=== PATIENT | female | born 1950 | race Caucasian/White ===

== ENCOUNTER 2022-11-16 10:56 | Outpatient (AMB) | payer MEDICARE, SELFPAY ==
--- NOTE | 2022-11-16 10:59 | A.OFFVIS_ITS ---
Intake Vital Signs 11/16/22 11:01 Height 5 ft 5 in Weight 151 lb 0.266 oz BMI 25.1 BP 126/86 Blood Pressure Location Rt brachial Position Sitting Pulse 86 Pulse Source Pulse Oximeter Temp 97.3 F Temp Source Skin Pulse Oximetry (%) 96 Oxygen Delivery Method Room Air Intake Visit Reasons: Polymyalgia rheumatica Intake Note: New patient here for PMR. Former patient of Dr. Ann at [facility] [place]. 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 Accompanied by: Self / Same As Patient Allergies acetaminophen [From Percocet] Allergy (Verified 11/16/22 10:59) Nausea and Vomiting bupropion [From Wellbutrin] Allergy (Verified 11/16/22 10:59) Abdominal Pain oxycodone [From Percocet] Allergy (Verified 11/16/22 10:59) Nausea and Vomiting Medication List - Last Reconciled 11/16/22 by Maycol Chavez MD alendronate 70 mg PO QWEEK aripiprazole 5 mg PO DAILY atorvastatin 10 mg PO DAILY clonidine HCl 0.1 mg PO BEDTIME gabapentin 300 mg PO TID glycopyrrolate 0 mg PO hydroxyzine HCl 25 mg PO TID latanoprost 0.005% 0 drps ophthalmic (eye) lisinopril 10 mg PO DAILY lorazepam 0.5 mg PO BID PRN prednisone 2.5 mg PO DAILY trazodone mg PO HPI HPI Comments History of Present Illness Details The patient presents for evaluation of PMR. She is a former patient of Dr. Glaser at [facility]. She thinks her symptoms of PMR began in 2019. She was having trouble with back and hip pains. She had trouble getting up out of bed cell and actually elevated her bed so as not to have to stand up is much. Eventually she did get seen by someone who made the diagnosis of PMR. She recalls being started on 15 mg daily prednisone and felt back to normal within about 5 days. There has never been any headache, jaw claudication or visual disturbance. She recalls tapering the prednisone down to as low as she could stand. There was a time when she had a flare-up a few years ago and required 12.5 mg daily prednisone. She does have the 2.5 mg and 1 mg tablets and has been at 2.5 mg for the last few weeks, having tapered from 3.5 mg daily. [facility] Medical History History of sleep disorder Hx of attention deficit disorder Hx of low back pain Hx of bipolar disorder History of anxiety Hx of essential hypertension Hx of hyperlipidemia Hx of idiopathic urticaria History of hyperthyroidism Hx of osteopenia Overweight with body mass index (BMI) of 29 to 29.9 in adult Hx of hyperkalemia History of macrocytosis detention (current) use of systemic steroids History of polymyalgia rheumatica Surgical History History of open reduction and internal fixation (ORIF) procedure Hx of cervical spine surgery Social History (Updated 11/16/22 @ 11:09 by ISABELLE Simms) Household Members: None Alcohol intake: current Alcohol intake frequency: holidays/special occasions only Patient Tobacco Use Status: Former Tobacco user Current occupational status: employed 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 Negative for appetite change, fever, chills, malaise and fatigue Eyes Details: Some itchiness in the eyes. Negative for vision change, dry eyes,headaches and dizziness ENT Details: Occasional hoarseness. Negative for hearing change, tinnitus, oral ulcer, nose bleeds and oral dryness. Card Details: Negative chest pain, edema and syncope Resp Details: History of asthma with occasional shortness of breath and cough but recently negative for SOB, cough and wheezing GI Details: Negative indigestion/heartburn, nausea, abdominal pain, bowel changes, diarrhea, constipation and bloody stool. Details: Negative for dysuria, hematuria, nocturia, decreased force/flow and genital discharge Skin/Breast Details: Occasional hives of unclear etiology. She has hyperhidrosis and is on some medicine for that. She has upcoming Dermatology appointment. Negative for itching, rash, Raynaud's symptoms, sun sensitivity, and skin cancer Neuro Details: Negative for epilepsy, palsy, stroke, changes in speech, tingling and weakness Psych Details: Negative for anxiety, depression and stress Endo Details: Negative for polyuria and polydypsia Jeb/Lymph Details: Negative for excessive bruising or bleeding. Physical Exam Vital Signs: Last Vital Signs Temp 97.3 F 11/16/22 11:01 Pulse 86 11/16/22 11:01 BP 126/86 11/16/22 11:01 Pulse Ox 96 11/16/22 11:01 Oxygen Delivery Method Room Air 11/16/22 11:01 BMI result Body Mass Index 25.1 APPEARANCE: Patient in no acute distress EYES no redness, pupils equal and reactive to light, eyelids normal. No temporal artery tenderness, redness or swelling. EARS: External ear normal, canal clear and tympanic membrane normal. NOSE/SINUS: Airflow through both nares, no nasal discharge, no bleeding THROAT: Oral mucosa moist, no ulcerations NECK: No thyromegaly or masses, no adenopathy, trachea midline. HEART: Regulrar rhythm, S1-S2 heard, no murmurs, rubs or gallops. LUNG: Clear to percussion and auscultation ABD: Normal bowel sounds, no organomegaly, masses or tenderness. EXTREMITIES: No edema, no calf tenderness, normal peripheral pulses. NEURO: Oriented and alert x3. No focal weakness. Reflexes symmetric. Gait normal. SKIN: No inflammatory or neoplastic lesions. Normal color and turgor JOINT EXAM:.?? Cervical Spine:.? Decrease in lateral flexion to 10 degrees and rotation at 45 degrees with slight discomfort at those extremes. No tenderness. Thoracic Spine:.? No scoliosis.? No tenderness on palpation. Lumbar Spine:.? Alignment normal.? Full range of motion without pain, no tenderness. Chest Wall:.? No tenderness, swelling, increased warmth or erythema. Hands:.? Right: Nontender bony enlargement at the base of the thumb. There is some nontender bony enlargement at the 2nd 3rd distal IP joints. Elsewhere in the hand there is no swelling or tenderness. No thenar atrophy or sensory loss. Left: Mild swelling and tenderness at the base of the thumb. There is some minimal nontender bony enlargement at the 2nd and 3rd distal IP joints. No other areas of swelling or tenderness. No thenar atrophy or sensory loss. Wrists: Right: Slight ulnar deviation. No tenderness, motion intact to 75 degrees without pain. No swelling, redness or warmth. Left: Appears to be some ulnar deviation at the wrist. The wrist is slightly tender with slight pain at 75 degrees flexion or extension.? There is no tenderness, redness or swelling . Elbows:. Normal pain-free range of motion without tenderness, swelling, increased warmth or erythema. Shoulders:.?? Full range of motion without pain. No tenderness, weakness, swelling, increased warmth or erythema. Hips:.? Full range of motion without pain. Hip bursa:.? No tenderness. Knees:.?? Normal pain-free range of motion with mild patellofemoral crepitus. No effusion, tenderness, swelling, increased warmth or erythema.? Ankles:. Left: There is evidence of surgery about the ankle but range of motion seems to be intact without pain. No areas of tenderness or swelling. Right:? Normal pain-free range of motion without tenderness, swelling, increased warmth or erythema. Feet: Right: Slight 1st MTP bony enlargement. There is at dorsal firm lump on the instep. This is not tender. There is no area of tenderness or swelling. Left: Mild 1st MTP bony enlargement without tenderness. There is also some slight bony enlargement at the 1st and 2nd interphalangeal joints without tenderness. No other areas of tenderness or swelling. Tender points:.? No tenderness to digital palpation at the occiput, trapezius, second rib, lateral epicondyle, knees, greater trochanter and gluteal area bilaterally. ? Assessment & Plan Assessment & Plan (1) Hx of osteopenia: Code(s): Z87.39 - Personal history of other diseases of the musculoskeletal system and connective tissue (2) Polymyalgia rheumatica: Code(s): M35.3 - Polymyalgia rheumatica Plan The patient has a good history that is consistent with PMR. She has been tapering on the prednisone over the last few years. We will check the acute phase reactants today if they look normal we will advise on further tapering. We will try to get the prednisone dose as low as possible and eventually get her off it although we cannot make any guarantees in that regard. She does have some underlying osteoarthritis in the hands and in the feet but they are minimally symptomatic presently. She likely has some OA elsewhere, again without much in the way of symptomatology currently. I do not seem to be able to find her bone density test but with the chronic prednisone use I would concur with continuing the alendronate at least until we get her off the prednisone. We will have her come back in 3 months but will advis her on further reductions in the prednisone after the labs come back. Addendum: CRP .24, ESR 9. We will call and tell her to reduce prednisone to 2 mg daily for a month then 1mg daily. Orders: Orders C Reactive Protein Today M35.3 - Polymyalgia rheumatica Erythrocyte Sedimentation Rate Today M35.3 - Polymyalgia rheumatica Coding Level of Care Code New Pt Level 3 (74188) Diagnoses Hx of osteopenia Z87.39 Polymyalgia rheumatica M35.3
[2022-11-16 11:01] VITALS: BP 126/86; PULSE 86; TEMP 36.3; O2SAT 96; BMI 25.1
== END 2022-11-16 11:49 | disposition home or self-care (01) ==
PROVIDERS: PCP Nurse Practitioner Family; Visit Provider Internal Medicine Rheumatology
DX: Z87.39 Personal history of other diseases of the musculoskeletal system and connective tissue (principal); M35.3 Polymyalgia rheumatica
CPT/HCPCS: 99203

== ENCOUNTER → 2022-11-16 10:56 | Outpatient (BNVA) | payer MEDICARE, SELFPAY | PROVIDERS: PCP Nurse Practitioner Family; Visit Provider Internal Medicine Rheumatology ==

== ENCOUNTER 2022-11-16 11:56 | Outpatient (REF) | payer MEDICARE, SELFPAY ==
[2022-11-16 13:56] LABS: C Reactive Protein 0.24 mg/dL (< or = 0.50)
[2022-11-16 14:21] LABS: Erythrocyte Sedimentation Rate 9 MM/HR (0-20)
== END 2022-11-16 11:57 | disposition home or self-care (01) ==
LOC: HO.10HDL 11:56
PROVIDERS: Visit Provider Internal Medicine Rheumatology
DX: M35.3 Polymyalgia rheumatica (principal)
CPT/HCPCS: 36415; 85652; 86140

== ENCOUNTER 2023-02-22 09:47 | Outpatient (REF) | payer MEDICARE, SELFPAY | END 2023-02-22 09:48 | disposition home or self-care (01) | LOC: HO.XRAY 09:47 | PROVIDERS: PCP Nurse Practitioner Family; Visit Provider Nurse Practitioner Family | DX: M35.3 Polymyalgia rheumatica (principal); M79.641 Pain in right hand; M79.642 Pain in left hand; M79.671 Pain in right foot; M79.672 Pain in left foot | CPT/HCPCS: 73130; 73630; 99212 ==

== ENCOUNTER 2023-02-22 09:47 | Outpatient (AMB) | payer MEDICARE, SELFPAY ==
[2023-02-22 09:56] VITALS: BP 130/78; PULSE 94; RESP 17; TEMP 36.5; O2SAT 98
--- NOTE | 2023-02-22 09:56 | MHC.OFFVIS ---
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 Accompanied by: Self / Same As Patient Allergies acetaminophen [From Percocet] Allergy (Verified 02/22/23 10:01) Nausea and Vomiting bupropion [From Wellbutrin] Allergy (Verified 02/22/23 10:01) Abdominal Pain oxycodone [From Percocet] Allergy (Verified 02/22/23 10:01) Nausea and Vomiting Medication List - Last Reconciled 02/22/23 by Jackelyn Little RN alendronate 70 mg PO QWEEK aripiprazole 5 mg PO DAILY atorvastatin 10 mg PO DAILY clonidine HCl 0.1 mg PO BEDTIME gabapentin 300 mg PO TID glycopyrrolate 0 mg PO hydroxyzine HCl 25 mg PO TID latanoprost 0.005% 0 drps ophthalmic (eye) lisinopril 10 mg PO DAILY lorazepam 0.5 mg PO BID PRN prednisone 1 mg PO DAILY trazodone mg PO HPI HPI Comments History of Present Illness Details Mrs. Mcdaniels is 72-year-old female presents for follow-up evaluation of PMR, last seen in the office 11/2022. Since last visit in she has tapered down to 1 mg QD and has been at 1 mg for 3 weeks. She reports she is doing well but she feels the most stiffness when she first wakes up in the morning to get out of bed, but it does not last for more than 30 minutes. She reports that the morning stiffness improves as she gets moving to make coffee. She feels fairly well throughout the day but if she sits down again she feels stiffness to get moving again. She is scheduled for Bone Density update in July 2023 Prior Visit The patient presents for evaluation of PMR. She is a former patient of Dr. Glaser at [facility]. She thinks her symptoms of PMR began in 2019. She was having trouble with back and hip pains. She had trouble getting up out of bed cell and actually elevated her bed so as not to have to stand up is much. Eventually she did get seen by someone who made the diagnosis of PMR. She recalls being started on 15 mg daily prednisone and felt back to normal within about 5 days. There has never been any headache, jaw claudication or visual disturbance. She recalls tapering the prednisone down to as low as she could stand. There was a time when she had a flare-up a few years ago and required 12.5 mg daily prednisone. She does have the 2.5 mg and 1 mg tablets and has been at 2.5 mg for the last few weeks, having tapered from 3.5 mg daily. 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 History of polymyalgia rheumatica Surgical History History of open reduction and internal fixation (ORIF) procedure Hx of cervical spine surgery Social History Household Members: None Alcohol intake: current Alcohol intake frequency: holidays/special occasions only Patient Tobacco Use Status: Former Tobacco user Current occupational status: employed 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 NOSE/SINUS: Airflow through both nares, no nasal discharge, no bleeding THROAT: Oral mucosa moist, no ulcerations HEART: Regulrar rhythm, S1-S2 heard, no murmurs, rubs or gallops. LUNG: Clear to percussion and auscultation ABD: Normal bowel sounds, no organomegaly, masses or tenderness. EXTREMITIES: No edema, no calf tenderness, normal peripheral pulses. NEURO: Oriented and alert x3. No focal weakness. Reflexes symmetric. Gait normal. SKIN: No inflammatory or neoplastic lesions. Normal color and turgor JOINT EXAM:.?? Cervical Spine:.? Decrease in lateral flexion to 10 degrees and rotation at 45 degrees with slight discomfort at those extremes. No tenderness. Thoracic Spine:.? No scoliosis.? No tenderness on palpation. Lumbar Spine:.? Alignment normal.? Full range of motion without pain, no tenderness. Chest Wall:.? No tenderness, swelling, increased warmth or erythema. Hands:.? There moderate tenderness with palpation and ROM of bilateral CMC joints Right: Nontender bony enlargement at the base of the thumb. There is some non tender bony enlargement at the 2nd 3rd distal IP joints but the patient says they can be tender at times. Elsewhere in the hand there is no swelling or tenderness. No thenar atrophy or sensory loss. Left: No swelling and tenderness at the base of the thumb. There is some minimal non tender bony enlargement at the 2nd and 3rd distal IP joints but they can get tender. No other areas of swelling or tenderness. No thenar atrophy or sensory loss. She does have some ulnar deviations of the right 3rd DIP joint Wrists: Right: Slight ulnar deviation. No tenderness, motion intact to 75 degrees without pain. No swelling, redness or warmth. Left: Appears to be some ulnar deviation at the wrist. The wrist is slightly tender with slight pain at 75 degrees flexion or extension.? There is no tenderness, redness or swelling. Bilateral wrists have history of fracture/breaks: Left x 2, right x1: Patient reports not seeking medical help when this happened. . Elbows:. Normal pain-free range of motion without tenderness, swelling, increased warmth or erythema. Shoulders:.?? Full range of motion without pain. No tenderness, weakness, swelling, increased warmth or erythema. Hips:.? Full range of motion without pain. Hip bursa:.? No tenderness. Knees:.?? Normal pain-free range of motion with mild patellofemoral crepitus. No effusion, tenderness, swelling, increased warmth or erythema.? Ankles:. Left: There is evidence of surgery about the ankle but range of motion seems to be intact without pain. No areas of tenderness or swelling. Right:? Normal pain-free range of motion without tenderness, swelling, increased warmth or erythema. Feet: Right: Slight 1st MTP bony enlargement. There is at dorsal firm lump on the instep. This is not tender. There is no area of tenderness or swelling. Left: Mild 1st MTP bony enlargement without tenderness. There is also some slight bony enlargement at the 1st and 2nd interphalangeal joints without tenderness. No other areas of tenderness or swelling. mild deformity to left 2nd digit Tender points:.? No tenderness to digital palpation at the occiput, trapezius, second rib, lateral epicondyle, knees, greater trochanter and gluteal area bilaterally. ? Assessment & Plan Assessment & Plan (1) Hx of osteopenia: Code(s): Z87.39 - Personal history of other diseases of the musculoskeletal system and connective tissue (2) Polymyalgia rheumatica: Code(s): M35.3 - Polymyalgia rheumatica (3) Bilateral hand pain: Code(s): M79.641 - Pain in right hand; M79.642 - Pain in left hand (4) Bilateral foot pain: Code(s): M79.671 - Pain in right foot; M79.672 - Pain in left foot Plan #PMR:Miss Mcdaniels, 72 yoF is being treated for PMR since 2019. 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 She enjoys staying active because she feels better when she does. The patient has a good history that is consistent with PMR. She is familiar with the symptoms of PMR and denies large muscle fatigue, tenderness or pain. At this point I think the PMR is resolved and what the patient is experiencing is osteoarthritis in her joint. She describes stiffness, especially in the morning, as her main concern. I explained to her the gelling phenomenon. Though gelling is more significant in the setting of an inflammatory arthritis, it helps us to understand what happens when our joints are inactive for a period of time. The difference is that in OA the duration of stiffness is shorter and recovery is usually faster(within minutes) once we get moving. She is current on 1 mg prednisone q.d. having tapered from 3 mg since last visit. I recommend that she continue the 1 mg for 1 more week and then stop. Given that she has been on Prednisone for so long, if it helps, she has the option to take 1 to 2 mg on days that she feels more joint pains after a hard work day. She should continue to take the Tylenol which she also finds beneficial. I will also obtain updated CRP/ESR. #Hand and Foot Pain: I will obtain imaging to assess the extent of OA also to investigate for features of an inflammatory arthritis to further evaluate the occasional tenderness to hand DIPs and Toe IPs. It maybe there is erosive OA underlying. #Hx of Osteopenia: With the chronic prednisone use I would concur with continuing the alendronate at least until we get her off the prednisone and for some months after. We will have her come back in 6 months but she is advise to call the office for earlier appointment if she experiences recurring symptoms of PMR. Orders: Orders XR hand LT min 3V Today M35.3 - Polymyalgia rheumatica, M79.641 - Pain in right hand, M79.642 - Pain in left hand, M79.671 - Pain in right foot, M79.672 - Pain in left foot Rheumatoid Factor Today M35.3 - Polymyalgia rheumatica, M79.641 - Pain in right hand, M79.642 - Pain in left hand, M79.671 - Pain in right foot, M79.672 - Pain in left foot XR hand RT min 3V Today M35.3 - Polymyalgia rheumatica, M79.641 - Pain in right hand, M79.642 - Pain in left hand, M79.671 - Pain in right foot, M79.672 - Pain in left foot XR foot LT min 3V Today M35.3 - Polymyalgia rheumatica, M79.641 - Pain in right hand, M79.642 - Pain in left hand, M79.671 - Pain in right foot, M79.672 - Pain in left foot XR foot RT min 3V Today M35.3 - Polymyalgia rheumatica, M79.641 - Pain in right hand, M79.642 - Pain in left hand, M79.671 - Pain in right foot, M79.672 - Pain in left foot Cyclic Citrullinated Peptide Today M35.3 - Polymyalgia rheumatica, M79.641 - Pain in right hand, M79.642 - Pain in left hand, M79.671 - Pain in right foot, M79.672 - Pain in left foot Complete Blood Count Auto Diff Today M35.3 - Polymyalgia rheumatica, M79.641 - Pain in right hand, M79.642 - Pain in left hand, M79.671 - Pain in right foot, M79.672 - Pain in left foot Comprehensive Met. Panel Today M35.3 - Polymyalgia rheumatica, M79.641 - Pain in right hand, M79.642 - Pain in left hand, M79.671 - Pain in right foot, M79.672 - Pain in left foot Coding Level of Care Code Est Pt Level 4 (93265) Diagnoses Hx of osteopenia Z87.39 Polymyalgia rheumatica M35.3 Bilateral hand pain M79.641; M79.642 Bilateral foot pain M79.671; M79.672
== END 2023-02-22 10:30 | disposition home or self-care (01) ==
PROVIDERS: PCP Nurse Practitioner Family; Visit Provider Nurse Practitioner Family
DX: Z87.39 Personal history of other diseases of the musculoskeletal system and connective tissue (principal); M35.3 Polymyalgia rheumatica; M79.641 Pain in right hand; M79.642 Pain in left hand; M79.671 Pain in right foot; M79.672 Pain in left foot
CPT/HCPCS: 99214

== ENCOUNTER 2023-02-22 10:39 | Outpatient (REF) | payer MEDICARE, SELFPAY ==
[2023-02-22 13:29] LABS: MANUAL DIFF FLAG NO
[2023-02-22 13:36] LABS: Basophils Absolute Auto 0.1 X10*3/uL (0.0-0.2); Basophils Percent Auto 0.7 % (0-2); Eosinophils Absolute Auto 0.2 X10*3/uL (0.0-0.4); Eosinophils Percent Auto 1.6 % (0-4); Hemoglobin 13.5 g/dl (12.0-16.0); Imm Gran Abs Auto 0.05 X10*3/uL (0.00-0.03); Imm Gran Pct Auto 0.5 % (0.0-0.4); Lymphocytes Absolute Auto 2.1 X10*3/uL (1.2-4.9); Lymphocytes Percent Auto 21.2 % (20-40); Mean Corpuscular HGB Conc 32.1 g/dl (31.0-35.0); Mean Corpuscular Hemoglobin 32.9 pg (27.0-33.0); Mean Corpuscular Volume 102.4 fL (80.0-98.0); Monocytes Absolute Auto 0.6 X10*3/uL (0.1-1.2); Monocytes Percent Auto 5.5 % (2-11); Neutrophils Absolute Auto 7.1 x10*3/uL (2.0-8.3); Neutrophils Percent Auto 70.5 % (45-73); Platelet Count 322 X10*3/uL (160-400); Red Cell Distribution Width 11.9 % (11.0-16.0); White Blood Count 10.1 X10*3/uL (4.8-10.8)
[2023-02-22 14:03] LABS: Alanine Aminotransferase 25 U/L (0-31); Albumin Level 4.6 g/dL (3.5-5.0); Alkaline Phosphatase 54 U/L (39-117); Anion Gap 14 (12-20); Aspartate Amino Transferase 26 U/L (5-31); Bilirubin Total 0.3 mg/dL (0.0-1.0); Blood Urea Nitrogen 12 mg/dL (9-16); Calcium 10.3 mg/dL (8.4-10.2); Carbon Dioxide 27 mmol/L (22-29); Chloride 102 mmol/L (96-108); Estimated Glomerular Filt Rate > 60; Glucose Random 103 mg/dL (60-115); Potassium 5.3 mmol/L (3.3-5.1); Sodium 138 mmol/L (135-145); Total Protein 7.9 g/dL (6.5-8.0)
[2023-02-22 14:04] LABS: Rheumatoid Factor < 13.0 IU/mL (<15.0)
[2023-02-23 12:23] LABS: Cyclic Citrullinated Peptide <16 UNITS
== END 2023-02-22 10:40 | disposition home or self-care (01) ==
LOC: HO.10HDL 10:39
PROVIDERS: Visit Provider Nurse Practitioner Family
DX: M35.3 Polymyalgia rheumatica (principal); M79.641 Pain in right hand; M79.642 Pain in left hand; M79.671 Pain in right foot; M79.672 Pain in left foot
CPT/HCPCS: 36415; 80053; 85025; 86200; 86431

== ENCOUNTER 2023-08-23 08:35 | Outpatient (REF) | payer MEDICARE, SELFPAY ==
[2023-08-23 08:47] LABS: MANUAL DIFF FLAG NO
[2023-08-23 09:15] LABS: Basophils Absolute Auto 0.1 X10*3/uL (0.0-0.2); Basophils Percent Auto 0.6 % (0-2); Eosinophils Absolute Auto 0.1 X10*3/uL (0.0-0.4); Eosinophils Percent Auto 0.7 % (0-4); Hematocrit 39.3 % (37.0-47.0); Hemoglobin 12.8 g/dl (12.0-16.0); Imm Gran Abs Auto 0.05 X10*3/uL (0.00-0.03); Imm Gran Pct Auto 0.4 % (0.0-0.4); Lymphocytes Absolute Auto 1.9 X10*3/uL (1.2-4.9); Lymphocytes Percent Auto 15.2 % (20-40); Mean Corpuscular HGB Conc 32.6 g/dl (31.0-35.0); Mean Corpuscular Hemoglobin 33.2 pg (27.0-33.0); Mean Corpuscular Volume 101.8 fL (80.0-98.0); Mean Platelet Volume 8.6 fL (9.4-12.3); Monocytes Absolute Auto 0.7 X10*3/uL (0.1-1.2); Monocytes Percent Auto 5.7 % (2-11); Neutrophils Absolute Auto 9.4 x10*3/uL (2.0-8.3); Neutrophils Percent Auto 77.4 % (45-73); Platelet Count 262 X10*3/uL (160-400); Red Blood Count 3.86 X10*6/uL (4.20-5.50); Red Cell Distribution Width 13.5 % (11.0-16.0); White Blood Count 12.2 X10*3/uL (4.8-10.8)
[2023-08-23 09:44] LABS: Alanine Aminotransferase 20 U/L (0-31); Albumin Level 4.3 g/dL (3.5-5.0); Alkaline Phosphatase 41 U/L (39-117); Anion Gap 13 (12-20); Aspartate Amino Transferase 23 U/L (5-31); Bilirubin Total 0.3 mg/dL (0.0-1.0); Blood Urea Nitrogen 21 mg/dL (9-16); C Reactive Protein 0.17 mg/dL (< or = 0.50); Calcium 9.3 mg/dL (8.4-10.2); Carbon Dioxide 26 mmol/L (22-29); Chloride 105 mmol/L (96-108); Estimated Glomerular Filt Rate > 60; Glucose Random 85 mg/dL (60-115); Sodium 139 mmol/L (135-145); Total Protein 7.1 g/dL (6.5-8.0)
[2023-08-23 10:01] LABS: Erythrocyte Sedimentation Rate 7 MM/HR (0-20)
[2023-08-24 21:19] LABS: Prot Elec - Albumin 4.2 g/dL (3.8-4.8); Prot Elec - Alpha1 0.3 g/dL (0.2-0.3); Prot Elec - Alpha2 0.7 g/dL (0.5-0.9); Prot Elec - Beta 1 0.5 g/dL (0.4-0.6); Prot Elec - Beta 2 0.4 g/dL (0.2-0.5); Prot Elec - Gamma 0.6 g/dL (0.8-1.7); Prot Elec - Total Protein 6.7 g/dL (6.1-8.1)
[2023-08-29 19:08] LABS: IgA 298 mg/dL (70-320); IgG 769 mg/dL (600-1540); IgM 49 mg/dL (50-300)
== END 2023-08-23 08:36 | disposition home or self-care (01) ==
LOC: HO.LAB 08:35
PROVIDERS: PCP Nurse Practitioner Family; Visit Provider Nurse Practitioner Family
DX: M35.3 Polymyalgia rheumatica (principal); M79.671 Pain in right foot; M79.672 Pain in left foot; M79.641 Pain in right hand; M79.642 Pain in left hand
CPT/HCPCS: 36415; 80053; 82784; 84165; 85025; 85652; 86140; 86334

== ENCOUNTER 2023-10-02 12:51 | Outpatient (AMB) | payer MEDICARE, SELFPAY ==
--- NOTE | 2023-10-02 13:06 | A.OFFVIS_ITS ---
Vital Signs 10/02/23 13:09 Height 5 ft 5 in Weight 157 lb 6.561 oz BMI 26.2 BP 124/78 Blood Pressure Location Rt brachial Position Sitting Respiration 16 Pulse 83 Pulse Source Pulse Oximeter Pulse Oximetry (%) 97 Oxygen Delivery Method Room Air Intake Visit Reasons: PMR/CM Intake Note: Patient presents for PMR. Allergies acetaminophen [From Percocet] Allergy (Verified 10/02/23 13:08) Nausea and Vomiting bupropion [From Wellbutrin] Allergy (Verified 10/02/23 13:08) Abdominal Pain oxycodone [From Percocet] Allergy (Verified 10/02/23 13:08) Nausea and Vomiting Medication List - Last Reconciled 10/02/23 by Eunice Best MD alendronate 70 mg PO QWEEK aripiprazole 5 mg PO DAILY atorvastatin 10 mg PO DAILY clonidine HCl 0.1 mg PO BEDTIME glycopyrrolate 0 mg PO hydroxyzine HCl 25 mg PO TID latanoprost 0.005% 0 drps ophthalmic (eye) lisinopril 10 mg PO DAILY lorazepam 0.5 mg PO BID PRN prednisone 2 mg (2 x 1 mg) PO DAILY trazodone mg PO HPI Comments Details: This is a 72-year-old female with PMR who presents for follow-up. After last visit patient was down to 1 mg of prednisone daily until she called with a flar e-up of multiple joint pain and stiffness this was in early July of 2023. She was prescribed prednisone 5 mg a day which did help of her pains now she lowered her prednisone down to 3 mg a day. She continues to have generalized achy joints but no significant stiffness. She denies any joint swelling FORMERLY [facility], [facility]1983 Medical History Bilateral foot pain Bilateral hand pain History of sleep disorder Hx of attention deficit disorder Hx of low back pain Hx of bipolar disorder History of anxiety Hx of essential hypertension Hx of hyperlipidemia Hx of idiopathic urticaria History of hyperthyroidism Hx of osteopenia Overweight with body mass index (BMI) of 29 to 29.9 in adult Hx of hyperkalemia History of macrocytosis halfway (current) use of systemic steroids History of polymyalgia rheumatica Surgical History History of open reduction and internal fixation (ORIF) procedure Hx of cervical spine surgery Social History Household Members: None Alcohol intake: current Alcohol intake frequency: holidays/special occasions only Patient Tobacco Use Status: Former Tobacco user Current occupational status: employed 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 Gender identity: Female Review of Systems [facility] [place] arthralgias and Reports stiffness Physical Exam Vital Signs: Last Vital Signs Pulse 83 10/02/23 13:09 Resp 16 10/02/23 13:09 BP 124/78 10/02/23 13:09 Pulse Ox 97 10/02/23 13:09 Oxygen Delivery Method Room Air 10/02/23 13:09 BMI result Body Mass Index 26.2 Const General: cooperative, healthy appearing and comfortable Nutritional Appearance: overweight Orientation/consciousness: patient oriented x3 Limitations: no limitations HEENT Head: Yes normocephalic and Yes atraumatic Mouth: moist mucous membranes Resp Effort & Inspection: normal respiratory effort and able to speak in complete sentences Skin General skin exam: no rashes or lesions noted Neuro General: patient oriented x3 Extrem Other: Significant osteoarthritic changes of both hands with no active synovitis Normal range of motion of hands, wrists, elbows and shoulders without pain Negative straight leg raise test bilaterally Bilateral trochanteric bursa area tenderness with negative Wilberto's test Negative straight leg raise test bilaterally No knee pain with flexion-extension bilaterally No Ankle swelling or tenderness bilaterally Assessment & Plan Assessment & Plan (1) Polymyalgia rheumatica: Comment: dx around [address] Ann Code(s): M35.3 - Polymyalgia rheumatica Category: Medical Plan: This is a 72-year-old female with PMR who presents for follow-up. This is her 1st visit with me. In early July patient called complaining of a flare-up of multiple joint pain. At that time she was taking prednisone 1 mg daily, prednisone was increased to 5 mg daily by Sultana Maguire with improvement of her symptoms. Patient self lowered her prednisone down to 3 mg a day. On exam today I believe the majority of patient's symptoms are mechanical and degenerative in nature. Reduce prednisone to 2 mg daily for 1 month, 1 mg daily for 1 month then 1 mg every other day for 1 month Labs before next visit in 3 months (2) Greater trochanteric bursitis of both hips: Code(s): M70.61 - Trochanteric bursitis, right hip; M70.62 - Trochanteric bursitis, left hip Category: Medical Plan: Not interested/unable to go to PT. I provided patient with a printout of home exercise Plan I spent 46 minutes reviewing patient's chart, reviewing old records from [facility], evaluating patient, ordering diagnostic workup, counseling patient and documenting in the chart Orders: Orders Complete Blood Count Auto Diff 3 Months M35.3 - Polymyalgia rheumatica C Reactive Protein 3 Months M35.3 - Polymyalgia rheumatica C Reactive Protein Today M35.3 - Polymyalgia rheumatica Erythrocyte Sedimentation Rate Today M35.3 - Polymyalgia rheumatica Hepatitis A,B,C Profile Today Z11.59 - Encounter for screening for other viral diseases Comprehensive Met. Panel 3 Months M35.3 - Polymyalgia rheumatica Erythrocyte Sedimentation Rate 3 Months M35.3 - Polymyalgia rheumatica Complete Blood Count Auto Diff Today M35.3 - Polymyalgia rheumatica Comprehensive Met. Panel Today M35.3 - Polymyalgia rheumatica T Spot TB Today Z11.7 - Encounter for testing for latent tuberculosis infection RACHAEL Reflex Titer and Pattern 3 Months M25.50 - Pain in unspecified joint Medications: Changed From prednisone 2 mg (2 x 1 mg) PO DAILY 56 tabs 0RF M35.3 - Polymyalgia rheumatica To prednisone Take 2 tabs daily for 1 month, 1 tab daily for 1 month then 1 tab every other day for 1 month 105 tabs 0RF M35.3 - Polymyalgia rheumatica Coding Level of Care Code Est Pt Level 5 (90925) Diagnoses Polymyalgia rheumatica M35.3 Greater trochanteric bursitis of both hips M70.61; M70.62
[2023-10-02 13:09] VITALS: BP 124/78; PULSE 83; RESP 16; O2SAT 97; BMI 26.2
== END 2023-10-02 13:45 | disposition home or self-care (01) ==
PROVIDERS: PCP Nurse Practitioner Family; Visit Provider Student in an Organized Health Care Education/Training Program
DX: M35.3 Polymyalgia rheumatica (principal); M70.61 Trochanteric bursitis, right hip; M70.62 Trochanteric bursitis, left hip
CPT/HCPCS: 99215

== ENCOUNTER → 2023-10-02 12:51 | Outpatient (BNVA) | payer MEDICARE, SELFPAY | PROVIDERS: PCP Nurse Practitioner Family; Visit Provider Student in an Organized Health Care Education/Training Program | DX: M35.3 Polymyalgia rheumatica (principal); M70.61 Trochanteric bursitis, right hip; M70.62 Trochanteric bursitis, left hip | CPT/HCPCS: 99212 ==

== ENCOUNTER 2023-10-31 09:15 | Outpatient (AMB) | payer MEDICARE, SELFPAY ==
--- NOTE | 2023-10-31 09:18 | MHC.OFFVIS ---
Vital Signs 10/31/23 09:19 Height 5 ft 5 in Weight 174 lb 9.698 oz BMI 29.1 BP 150/80 H Blood Pressure Location Lt brachial Position Sitting Pulse 79 Pulse Source Pulse Oximeter Pulse Oximetry (%) 98 Oxygen Delivery Method Room Air Intake Visit Reasons: PMR Intake Note: Patient is here for osteoarthritis, patient is in a lot of pain today, she states it got worse a week after she was last seen. She states she uses heat and ice, ibuprofen, brian root, green tea which helps, she states she is hurting everywhere. Allergies acetaminophen [From Percocet] Allergy (Verified 10/31/23 09:24) Nausea and Vomiting bupropion [From Wellbutrin] Allergy (Verified 10/31/23 09:24) Abdominal Pain oxycodone [From Percocet] Allergy (Verified 10/31/23 09:24) Nausea and Vomiting Medication List - Last Reconciled 10/31/23 by Eunice Best MD acetaminophen ER 1,300 mg PO Q12H alendronate 70 mg PO QWEEK aripiprazole 5 mg PO DAILY atorvastatin 10 mg PO DAILY clonidine HCl 0.1 mg PO BEDTIME gabapentin 300 mg PO TID glycopyrrolate 0 mg PO hydroxyzine HCl 25 mg PO TID latanoprost 0.005% 0 drps ophthalmic (eye) lisinopril 10 mg PO DAILY lorazepam 0.5 mg PO BID PRN prednisone Take 3 tabs daily for 2 weeks, 2 tabs daily for 2 weeks then remain on 1 tab daily trazodone mg PO HPI Comments Details: This is a 72-year-old female with PMR who presents for an urgent visit. She has been taking was on 2 mg daily for the last month or so. She has been having significant pain and stiffness and limited range of motion of her shoulders, the outside of her hips, her knees, she noticed left ankle and foot swelling and tenderness. 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 History of polymyalgia rheumatica Surgical History History of open reduction and internal fixation (ORIF) procedure Hx of cervical spine surgery Social History Household Members: None Alcohol intake: current Alcohol intake frequency: holidays/special occasions only Patient Tobacco Use Status: Former Tobacco user Current occupational status: employed 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 Gender identity: Female Review of Systems [facility] [place] Reports arthralgias, Reports limited range of motion and Reports stiffness Physical Exam Vital Signs: Last Vital Signs Pulse 79 10/31/23 09:19 BP 150/80 H 10/31/23 09:19 Pulse Ox 98 10/31/23 09:19 Oxygen Delivery Method Room Air 10/31/23 09:19 BMI result Body Mass Index 29.1 Const General: cooperative, healthy appearing and comfortable Nutritional Appearance: overweight Orientation/consciousness: patient oriented x3 Limitations: no limitations HEENT Head: Yes normocephalic and Yes atraumatic Mouth: moist mucous membranes Resp Effort & Inspection: normal respiratory effort and able to speak in complete sentences Skin General skin exam: no rashes or lesions noted Neuro General: patient oriented x3 Extrem Other: Significant osteoarthritic changes of both hands Right 3rd and 4th MCP tenderness Significantly limited bilateral shoulder abduction Left trochanteric bursa area tenderness Bilateral knee pain with flexion-extension No knee warmth or swelling bilaterally Left ankle and foot swelling and tenderness Assessment & Plan Assessment & Plan (1) Polymyalgia rheumatica: Comment: dx around [address] Ann Code(s): M35.3 - Polymyalgia rheumatica Category: Medical Plan: This is a 72-year-old female with PMR who presents for follow-up. She has been taking prednisone 2 mg daily for about a month. She is starting to have a flare-up of diffuse joint pain including her shoulders, her hips,. On exam she has tender right hand MCPs, left ankle and foot swelling. I have some suspicion of inflammatory arthritis such as seronegative RA. Check x-rays of involved joints, check serologies and inflammatory markers Increase prednisone to 15 mg daily for 2 weeks, 10 mg daily for 2 weeks then remain on 5 mg daily Follow-up in 2 months (2) Greater trochanteric bursitis of both hips: Code(s): M70.61 - Trochanteric bursitis, right hip; M70.62 - Trochanteric bursitis, left hip Category: Medical Plan: Not interested/unable to go to PT. not interested in injection. she does home exercises Plan I spent 26 minutes reviewing patient's chart, evaluating patient, ordering diagnostic workup, counseling patient and documenting in the chart Orders: Orders XR lumbar spine 4V min Today M25.50 - Pain in unspecified joint XR shoulder LT min 2V Today M25.50 - Pain in unspecified joint XR shoulder RT min 2V Today M25.50 - Pain in unspecified joint XR hip LT min 2V Today M25.50 - Pain in unspecified joint XR hip RT min 2V Today M25.50 - Pain in unspecified joint XR knee LT 3V Today M25.50 - Pain in unspecified joint XR knee standing BI Today M25.50 - Pain in unspecified joint XR ankle RT min 3V Today M25.50 - Pain in unspecified joint XR knee RT 3V Today M25.50 - Pain in unspecified joint XR ankle LT min 3V Today M25.50 - Pain in unspecified joint XR lumbar spine 4V min Today M54.50 - Low back pain, unspecified HLA B27 Today M45.9 - Ankylosing spondylitis of unspecified sites in spine Medications: New prednisone Take 3 tabs daily for 2 weeks, 2 tabs daily for 2 weeks then remain on 1 tab daily 100 tabs 0RF Coding Level of Care Code Est Pt Level 4 (26809) Diagnoses Polymyalgia rheumatica M35.3 Greater trochanteric bursitis of both hips M70.61; M70.62
[2023-10-31 09:19] VITALS: BP 150/80; PULSE 79; O2SAT 98; BMI 29.1
== END 2023-10-31 09:48 | disposition home or self-care (01) ==
PROVIDERS: PCP Nurse Practitioner Family; Visit Provider Student in an Organized Health Care Education/Training Program
DX: M35.3 Polymyalgia rheumatica (principal); M70.61 Trochanteric bursitis, right hip; M70.62 Trochanteric bursitis, left hip
CPT/HCPCS: 99214

== ENCOUNTER 2023-10-31 09:15 | Outpatient (REF) | payer MEDICARE, SELFPAY ==
--- NOTE | ~2023-10-31 | XR_ITS ---
EXAMINATION: X-RAY SHOULDER, BILATERAL. X-RAY LUMBAR SPINE. X-RAY HIP BILATERAL. X-RAY KNEE, BILATERAL. X-RAY ANKLE, BILATERAL. CLINICAL INFORMATION: Polyarthralgia. Low back pain. COMPARISON: None. TECHNIQUE: 3 views of each shoulder. 5 views of the lumbar spine. AP and frog lateral views of each hip. AP standing view plus 3 views of each knee. 3 views of each ankle. FINDINGS: Shoulders: No fracture or malalignment. Symmetric ucih-tc-dgqiiwlt acromioclavicular and mild glenohumeral osteoarthritis. Lumbar spine: Rotatory levoconvex scoliosis with severe degenerative disc disease throughout the lumbar spine. Marked disc space narrowing at L2-L3 where there may be partial fusion. Prominent endplate sclerosis and osteophytes of L1-L2 and L3-L4. Facet arthropathy more prominent at the lower lumbar levels. No acute fracture. Hips: Symmetric mild superomedial joint space narrowing. No fracture or malalignment. Moderate degenerative changes noted at the pubic symphysis. No suspicious bone lesion or soft tissue calcification. Knees: Medial compartment narrowing and small marginal osteophytes, left greater than right. Wjexl-ap-mmmozmyd bilateral joint effusions. No fracture or malalignment. No suspicious bone lesion. Ankles: Fracture fixation hardware of the right medial malleolus and distal fibula. Fractures appear healed. There is narrowing of the tibiotalar joint laterally, as well as at the junction of the distal fibula and the lateral process of the calcaneus with an adjacent small chronic ossification. The left ankle joint is unremarkable. Small bilateral heel spurs. XR/XR shoulder RT min 2V IMPRESSION: Ckcw-wp-kmszeimy degenerative changes of both shoulders. No acute abnormality. Scoliosis and severe multilevel degenerative disc disease of the lumbar spine. No acute abnormality. Mild bilateral hip osteoarthritis. Medial compartment osteoarthritis of both knees, left greater than right, with bilateral joint effusions. Post surgical changes of the right ankle with moderate tibiotalar osteoarthritis, and degenerative change at the junction of the distal fibula and lateral talus. Normal left ankle. Electronically signed by: Silviano Quiñonez MD 11/06/2023 11:23 AM EDT
--- NOTE | ~2023-10-31 | XR_ITS ---
EXAMINATION: X-RAY SHOULDER, BILATERAL. X-RAY LUMBAR SPINE. X-RAY HIP BILATERAL. X-RAY KNEE, BILATERAL. X-RAY ANKLE, BILATERAL. CLINICAL INFORMATION: Polyarthralgia. Low back pain. COMPARISON: None. TECHNIQUE: 3 views of each shoulder. 5 views of the lumbar spine. AP and frog lateral views of each hip. AP standing view plus 3 views of each knee. 3 views of each ankle. FINDINGS: Shoulders: No fracture or malalignment. Symmetric zkpm-pe-abkfhqqc acromioclavicular and mild glenohumeral osteoarthritis. Lumbar spine: Rotatory levoconvex scoliosis with severe degenerative disc disease throughout the lumbar spine. Marked disc space narrowing at L2-L3 where there may be partial fusion. Prominent endplate sclerosis and osteophytes of L1-L2 and L3-L4. Facet arthropathy more prominent at the lower lumbar levels. No acute fracture. Hips: Symmetric mild superomedial joint space narrowing. No fracture or malalignment. Moderate degenerative changes noted at the pubic symphysis. No suspicious bone lesion or soft tissue calcification. Knees: Medial compartment narrowing and small marginal osteophytes, left greater than right. Zucmf-zg-ixfhhibw bilateral joint effusions. No fracture or malalignment. No suspicious bone lesion. Ankles: Fracture fixation hardware of the right medial malleolus and distal fibula. Fractures appear healed. There is narrowing of the tibiotalar joint laterally, as well as at the junction of the distal fibula and the lateral process of the calcaneus with an adjacent small chronic ossification. The left ankle joint is unremarkable. Small bilateral heel spurs. XR/XR knee RT 4V IMPRESSION: Pjol-rk-smdxymdu degenerative changes of both shoulders. No acute abnormality. Scoliosis and severe multilevel degenerative disc disease of the lumbar spine. No acute abnormality. Mild bilateral hip osteoarthritis. Medial compartment osteoarthritis of both knees, left greater than right, with bilateral joint effusions. Post surgical changes of the right ankle with moderate tibiotalar osteoarthritis, and degenerative change at the junction of the distal fibula and lateral talus. Normal left ankle. Electronically signed by: Silviano Quiñonez MD 11/06/2023 11:23 AM EDT
--- NOTE | ~2023-10-31 | XR_ITS ---
EXAMINATION: X-RAY SHOULDER, BILATERAL. X-RAY LUMBAR SPINE. X-RAY HIP BILATERAL. X-RAY KNEE, BILATERAL. X-RAY ANKLE, BILATERAL. CLINICAL INFORMATION: Polyarthralgia. Low back pain. COMPARISON: None. TECHNIQUE: 3 views of each shoulder. 5 views of the lumbar spine. AP and frog lateral views of each hip. AP standing view plus 3 views of each knee. 3 views of each ankle. FINDINGS: Shoulders: No fracture or malalignment. Symmetric eusc-ox-rfunvseg acromioclavicular and mild glenohumeral osteoarthritis. Lumbar spine: Rotatory levoconvex scoliosis with severe degenerative disc disease throughout the lumbar spine. Marked disc space narrowing at L2-L3 where there may be partial fusion. Prominent endplate sclerosis and osteophytes of L1-L2 and L3-L4. Facet arthropathy more prominent at the lower lumbar levels. No acute fracture. Hips: Symmetric mild superomedial joint space narrowing. No fracture or malalignment. Moderate degenerative changes noted at the pubic symphysis. No suspicious bone lesion or soft tissue calcification. Knees: Medial compartment narrowing and small marginal osteophytes, left greater than right. Epxhn-na-vggqjxgi bilateral joint effusions. No fracture or malalignment. No suspicious bone lesion. Ankles: Fracture fixation hardware of the right medial malleolus and distal fibula. Fractures appear healed. There is narrowing of the tibiotalar joint laterally, as well as at the junction of the distal fibula and the lateral process of the calcaneus with an adjacent small chronic ossification. The left ankle joint is unremarkable. Small bilateral heel spurs. XR/XR lumbar spine 4V min IMPRESSION: Pbup-ad-ntyccdhm degenerative changes of both shoulders. No acute abnormality. Scoliosis and severe multilevel degenerative disc disease of the lumbar spine. No acute abnormality. Mild bilateral hip osteoarthritis. Medial compartment osteoarthritis of both knees, left greater than right, with bilateral joint effusions. Post surgical changes of the right ankle with moderate tibiotalar osteoarthritis, and degenerative change at the junction of the distal fibula and lateral talus. Normal left ankle. Electronically signed by: Silviano Quiñonez MD 11/06/2023 11:23 AM EDT
--- NOTE | ~2023-10-31 | XR_ITS ---
EXAMINATION: X-RAY SHOULDER, BILATERAL. X-RAY LUMBAR SPINE. X-RAY HIP BILATERAL. X-RAY KNEE, BILATERAL. X-RAY ANKLE, BILATERAL. CLINICAL INFORMATION: Polyarthralgia. Low back pain. COMPARISON: None. TECHNIQUE: 3 views of each shoulder. 5 views of the lumbar spine. AP and frog lateral views of each hip. AP standing view plus 3 views of each knee. 3 views of each ankle. FINDINGS: Shoulders: No fracture or malalignment. Symmetric bhwq-en-sddhugcj acromioclavicular and mild glenohumeral osteoarthritis. Lumbar spine: Rotatory levoconvex scoliosis with severe degenerative disc disease throughout the lumbar spine. Marked disc space narrowing at L2-L3 where there may be partial fusion. Prominent endplate sclerosis and osteophytes of L1-L2 and L3-L4. Facet arthropathy more prominent at the lower lumbar levels. No acute fracture. Hips: Symmetric mild superomedial joint space narrowing. No fracture or malalignment. Moderate degenerative changes noted at the pubic symphysis. No suspicious bone lesion or soft tissue calcification. Knees: Medial compartment narrowing and small marginal osteophytes, left greater than right. Rnjtt-dw-ntyxmgmp bilateral joint effusions. No fracture or malalignment. No suspicious bone lesion. Ankles: Fracture fixation hardware of the right medial malleolus and distal fibula. Fractures appear healed. There is narrowing of the tibiotalar joint laterally, as well as at the junction of the distal fibula and the lateral process of the calcaneus with an adjacent small chronic ossification. The left ankle joint is unremarkable. Small bilateral heel spurs. XR/XR knee LT 4V IMPRESSION: Ampk-ga-zqghapld degenerative changes of both shoulders. No acute abnormality. Scoliosis and severe multilevel degenerative disc disease of the lumbar spine. No acute abnormality. Mild bilateral hip osteoarthritis. Medial compartment osteoarthritis of both knees, left greater than right, with bilateral joint effusions. Post surgical changes of the right ankle with moderate tibiotalar osteoarthritis, and degenerative change at the junction of the distal fibula and lateral talus. Normal left ankle. Electronically signed by: Silviano Quiñonez MD 11/06/2023 11:23 AM EDT
--- NOTE | ~2023-10-31 | XR_ITS ---
EXAMINATION: X-RAY SHOULDER, BILATERAL. X-RAY LUMBAR SPINE. X-RAY HIP BILATERAL. X-RAY KNEE, BILATERAL. X-RAY ANKLE, BILATERAL. CLINICAL INFORMATION: Polyarthralgia. Low back pain. COMPARISON: None. TECHNIQUE: 3 views of each shoulder. 5 views of the lumbar spine. AP and frog lateral views of each hip. AP standing view plus 3 views of each knee. 3 views of each ankle. FINDINGS: Shoulders: No fracture or malalignment. Symmetric hidl-du-osxdkyju acromioclavicular and mild glenohumeral osteoarthritis. Lumbar spine: Rotatory levoconvex scoliosis with severe degenerative disc disease throughout the lumbar spine. Marked disc space narrowing at L2-L3 where there may be partial fusion. Prominent endplate sclerosis and osteophytes of L1-L2 and L3-L4. Facet arthropathy more prominent at the lower lumbar levels. No acute fracture. Hips: Symmetric mild superomedial joint space narrowing. No fracture or malalignment. Moderate degenerative changes noted at the pubic symphysis. No suspicious bone lesion or soft tissue calcification. Knees: Medial compartment narrowing and small marginal osteophytes, left greater than right. Udyhu-nt-cuchbwvg bilateral joint effusions. No fracture or malalignment. No suspicious bone lesion. Ankles: Fracture fixation hardware of the right medial malleolus and distal fibula. Fractures appear healed. There is narrowing of the tibiotalar joint laterally, as well as at the junction of the distal fibula and the lateral process of the calcaneus with an adjacent small chronic ossification. The left ankle joint is unremarkable. Small bilateral heel spurs. XR/XR ankle LT min 3V IMPRESSION: Xjac-la-crycimac degenerative changes of both shoulders. No acute abnormality. Scoliosis and severe multilevel degenerative disc disease of the lumbar spine. No acute abnormality. Mild bilateral hip osteoarthritis. Medial compartment osteoarthritis of both knees, left greater than right, with bilateral joint effusions. Post surgical changes of the right ankle with moderate tibiotalar osteoarthritis, and degenerative change at the junction of the distal fibula and lateral talus. Normal left ankle. Electronically signed by: Silviano Quiñonez MD 11/06/2023 11:23 AM EDT
--- NOTE | ~2023-10-31 | XR_ITS ---
EXAMINATION: X-RAY SHOULDER, BILATERAL. X-RAY LUMBAR SPINE. X-RAY HIP BILATERAL. X-RAY KNEE, BILATERAL. X-RAY ANKLE, BILATERAL. CLINICAL INFORMATION: Polyarthralgia. Low back pain. COMPARISON: None. TECHNIQUE: 3 views of each shoulder. 5 views of the lumbar spine. AP and frog lateral views of each hip. AP standing view plus 3 views of each knee. 3 views of each ankle. FINDINGS: Shoulders: No fracture or malalignment. Symmetric vkoh-jw-uvfnmvfu acromioclavicular and mild glenohumeral osteoarthritis. Lumbar spine: Rotatory levoconvex scoliosis with severe degenerative disc disease throughout the lumbar spine. Marked disc space narrowing at L2-L3 where there may be partial fusion. Prominent endplate sclerosis and osteophytes of L1-L2 and L3-L4. Facet arthropathy more prominent at the lower lumbar levels. No acute fracture. Hips: Symmetric mild superomedial joint space narrowing. No fracture or malalignment. Moderate degenerative changes noted at the pubic symphysis. No suspicious bone lesion or soft tissue calcification. Knees: Medial compartment narrowing and small marginal osteophytes, left greater than right. Goefy-py-uqgutzmi bilateral joint effusions. No fracture or malalignment. No suspicious bone lesion. Ankles: Fracture fixation hardware of the right medial malleolus and distal fibula. Fractures appear healed. There is narrowing of the tibiotalar joint laterally, as well as at the junction of the distal fibula and the lateral process of the calcaneus with an adjacent small chronic ossification. The left ankle joint is unremarkable. Small bilateral heel spurs. XR/XR hip RT min 2V IMPRESSION: Pnif-sj-aiehlbtu degenerative changes of both shoulders. No acute abnormality. Scoliosis and severe multilevel degenerative disc disease of the lumbar spine. No acute abnormality. Mild bilateral hip osteoarthritis. Medial compartment osteoarthritis of both knees, left greater than right, with bilateral joint effusions. Post surgical changes of the right ankle with moderate tibiotalar osteoarthritis, and degenerative change at the junction of the distal fibula and lateral talus. Normal left ankle. Electronically signed by: Silviano Quiñonez MD 11/06/2023 11:23 AM EDT
--- NOTE | ~2023-10-31 | XR_ITS ---
EXAMINATION: X-RAY SHOULDER, BILATERAL. X-RAY LUMBAR SPINE. X-RAY HIP BILATERAL. X-RAY KNEE, BILATERAL. X-RAY ANKLE, BILATERAL. CLINICAL INFORMATION: Polyarthralgia. Low back pain. COMPARISON: None. TECHNIQUE: 3 views of each shoulder. 5 views of the lumbar spine. AP and frog lateral views of each hip. AP standing view plus 3 views of each knee. 3 views of each ankle. FINDINGS: Shoulders: No fracture or malalignment. Symmetric ufbr-fm-kzwuyylj acromioclavicular and mild glenohumeral osteoarthritis. Lumbar spine: Rotatory levoconvex scoliosis with severe degenerative disc disease throughout the lumbar spine. Marked disc space narrowing at L2-L3 where there may be partial fusion. Prominent endplate sclerosis and osteophytes of L1-L2 and L3-L4. Facet arthropathy more prominent at the lower lumbar levels. No acute fracture. Hips: Symmetric mild superomedial joint space narrowing. No fracture or malalignment. Moderate degenerative changes noted at the pubic symphysis. No suspicious bone lesion or soft tissue calcification. Knees: Medial compartment narrowing and small marginal osteophytes, left greater than right. Swbir-bz-uvwefiif bilateral joint effusions. No fracture or malalignment. No suspicious bone lesion. Ankles: Fracture fixation hardware of the right medial malleolus and distal fibula. Fractures appear healed. There is narrowing of the tibiotalar joint laterally, as well as at the junction of the distal fibula and the lateral process of the calcaneus with an adjacent small chronic ossification. The left ankle joint is unremarkable. Small bilateral heel spurs. XR/XR shoulder LT min 2V IMPRESSION: Huqf-sa-nfvgmsix degenerative changes of both shoulders. No acute abnormality. Scoliosis and severe multilevel degenerative disc disease of the lumbar spine. No acute abnormality. Mild bilateral hip osteoarthritis. Medial compartment osteoarthritis of both knees, left greater than right, with bilateral joint effusions. Post surgical changes of the right ankle with moderate tibiotalar osteoarthritis, and degenerative change at the junction of the distal fibula and lateral talus. Normal left ankle. Electronically signed by: Silviano Quiñonez MD 11/06/2023 11:23 AM EDT
--- NOTE | ~2023-10-31 | XR_ITS ---
EXAMINATION: X-RAY SHOULDER, BILATERAL. X-RAY LUMBAR SPINE. X-RAY HIP BILATERAL. X-RAY KNEE, BILATERAL. X-RAY ANKLE, BILATERAL. CLINICAL INFORMATION: Polyarthralgia. Low back pain. COMPARISON: None. TECHNIQUE: 3 views of each shoulder. 5 views of the lumbar spine. AP and frog lateral views of each hip. AP standing view plus 3 views of each knee. 3 views of each ankle. FINDINGS: Shoulders: No fracture or malalignment. Symmetric vosy-tv-mixphwld acromioclavicular and mild glenohumeral osteoarthritis. Lumbar spine: Rotatory levoconvex scoliosis with severe degenerative disc disease throughout the lumbar spine. Marked disc space narrowing at L2-L3 where there may be partial fusion. Prominent endplate sclerosis and osteophytes of L1-L2 and L3-L4. Facet arthropathy more prominent at the lower lumbar levels. No acute fracture. Hips: Symmetric mild superomedial joint space narrowing. No fracture or malalignment. Moderate degenerative changes noted at the pubic symphysis. No suspicious bone lesion or soft tissue calcification. Knees: Medial compartment narrowing and small marginal osteophytes, left greater than right. Gzacv-xh-ygzniorm bilateral joint effusions. No fracture or malalignment. No suspicious bone lesion. Ankles: Fracture fixation hardware of the right medial malleolus and distal fibula. Fractures appear healed. There is narrowing of the tibiotalar joint laterally, as well as at the junction of the distal fibula and the lateral process of the calcaneus with an adjacent small chronic ossification. The left ankle joint is unremarkable. Small bilateral heel spurs. XR/XR hip LT min 2V IMPRESSION: Amxz-ii-wjbabjjb degenerative changes of both shoulders. No acute abnormality. Scoliosis and severe multilevel degenerative disc disease of the lumbar spine. No acute abnormality. Mild bilateral hip osteoarthritis. Medial compartment osteoarthritis of both knees, left greater than right, with bilateral joint effusions. Post surgical changes of the right ankle with moderate tibiotalar osteoarthritis, and degenerative change at the junction of the distal fibula and lateral talus. Normal left ankle. Electronically signed by: Silviano Quiñonez MD 11/06/2023 11:23 AM EDT
--- NOTE | ~2023-10-31 | XR_ITS ---
EXAMINATION: X-RAY SHOULDER, BILATERAL. X-RAY LUMBAR SPINE. X-RAY HIP BILATERAL. X-RAY KNEE, BILATERAL. X-RAY ANKLE, BILATERAL. CLINICAL INFORMATION: Polyarthralgia. Low back pain. COMPARISON: None. TECHNIQUE: 3 views of each shoulder. 5 views of the lumbar spine. AP and frog lateral views of each hip. AP standing view plus 3 views of each knee. 3 views of each ankle. FINDINGS: Shoulders: No fracture or malalignment. Symmetric hyqa-oq-pvbfvdzp acromioclavicular and mild glenohumeral osteoarthritis. Lumbar spine: Rotatory levoconvex scoliosis with severe degenerative disc disease throughout the lumbar spine. Marked disc space narrowing at L2-L3 where there may be partial fusion. Prominent endplate sclerosis and osteophytes of L1-L2 and L3-L4. Facet arthropathy more prominent at the lower lumbar levels. No acute fracture. Hips: Symmetric mild superomedial joint space narrowing. No fracture or malalignment. Moderate degenerative changes noted at the pubic symphysis. No suspicious bone lesion or soft tissue calcification. Knees: Medial compartment narrowing and small marginal osteophytes, left greater than right. Afjmn-av-forxwoyt bilateral joint effusions. No fracture or malalignment. No suspicious bone lesion. Ankles: Fracture fixation hardware of the right medial malleolus and distal fibula. Fractures appear healed. There is narrowing of the tibiotalar joint laterally, as well as at the junction of the distal fibula and the lateral process of the calcaneus with an adjacent small chronic ossification. The left ankle joint is unremarkable. Small bilateral heel spurs. XR/XR ankle RT min 3V IMPRESSION: Lmis-yj-gapavvem degenerative changes of both shoulders. No acute abnormality. Scoliosis and severe multilevel degenerative disc disease of the lumbar spine. No acute abnormality. Mild bilateral hip osteoarthritis. Medial compartment osteoarthritis of both knees, left greater than right, with bilateral joint effusions. Post surgical changes of the right ankle with moderate tibiotalar osteoarthritis, and degenerative change at the junction of the distal fibula and lateral talus. Normal left ankle. Electronically signed by: Silviano Quiñonez MD 11/06/2023 11:23 AM EDT
[2023-10-31 10:22] LABS: MANUAL DIFF FLAG NO
[2023-10-31 10:40] LABS: Basophils Absolute Auto 0.1 X10*3/uL (0.0-0.2); Basophils Percent Auto 0.7 % (0-2); Eosinophils Absolute Auto 0.2 X10*3/uL (0.0-0.4); Eosinophils Percent Auto 1.7 % (0-4); Hemoglobin 11.9 g/dl (12.0-16.0); Imm Gran Abs Auto 0.04 X10*3/uL (0.00-0.03); Imm Gran Pct Auto 0.4 % (0.0-0.4); Lymphocytes Absolute Auto 1.9 X10*3/uL (1.2-4.9); Mean Corpuscular HGB Conc 32.2 g/dl (31.0-35.0); Mean Corpuscular Hemoglobin 33.5 pg (27.0-33.0); Mean Corpuscular Volume 104.2 fL (80.0-98.0); Mean Platelet Volume 8.7 fL (9.4-12.3); Monocytes Absolute Auto 0.7 X10*3/uL (0.1-1.2); Monocytes Percent Auto 7.7 % (2-11); Neutrophils Absolute Auto 6.7 x10*3/uL (2.0-8.3); Neutrophils Percent Auto 69.5 % (45-73); Platelet Count 350 X10*3/uL (160-400); Red Blood Count 3.55 X10*6/uL (4.20-5.50); Red Cell Distribution Width 13.3 % (11.0-16.0); White Blood Count 9.6 X10*3/uL (4.8-10.8)
[2023-10-31 11:20] LABS: Alanine Aminotransferase 34 U/L (0-31); Albumin Level 4.2 g/dL (3.5-5.0); Alkaline Phosphatase 64 U/L (39-117); Anion Gap 15 (12-20); Aspartate Amino Transferase 30 U/L (5-31); Bilirubin Total 0.2 mg/dL (0.0-1.0); Blood Urea Nitrogen 18 mg/dL (9-16); C Reactive Protein 3.32 mg/dL (< or = 0.50); Calcium 10.1 mg/dL (8.4-10.2); Carbon Dioxide 25 mmol/L (22-29); Chloride 103 mmol/L (96-108); Estimated Glomerular Filt Rate > 60; Glucose Random 97 mg/dL (60-115); Potassium 5.4 mmol/L (3.3-5.1); Sodium 138 mmol/L (135-145); Total Protein 7.3 g/dL (6.5-8.0)
[2023-10-31 11:26] LABS: Erythrocyte Sedimentation Rate 56 MM/HR (0-20)
[2023-10-31 11:30] LABS: HBS Num1 5.96 mIU/mL (0-7.99); HBc Num1 0.11 S/CO (0.00-0.79); HBsAGNum1 0.19 S/CO (0.00-0.99); Hepatitis A Antibody IgM 0.12 Index (0-0.79); Hepatitis B Core Antibody Nonreactive (Nonreactive); Hepatitis B Surface Antigen Negative (Negative); ~HepC Num1 0.09 S/CO (0.00-0.79); ~Hepatitis A Antibody IgM Nonreactive (Nonreactive); ~Hepatitis B Surface Antibody NONREACTIVE (Nonreactive); ~Hepatitis C Antibody Nonreactive (Nonreactive)
[2023-11-05 11:18] LABS: Anti Nuclear Antibody Screen NEGATIVE (NEGATIVE)
[2023-11-07 16:09] LABS: HLA B27 Negative (Negative)
== END 2023-10-31 09:16 | disposition home or self-care (01) ==
LOC: HO.XRAY 09:15
PROVIDERS: PCP Nurse Practitioner Family; Visit Provider Student in an Organized Health Care Education/Training Program
DX: M35.3 Polymyalgia rheumatica (principal); M24.112 Other articular cartilage disorders, left shoulder; M24.111 Other articular cartilage disorders, right shoulder; M41.9 Scoliosis, unspecified; M51.36 Other intervertebral disc degeneration, lumbar region; M17.0 Bilateral primary osteoarthritis of knee; M25.462 Effusion, left knee; M25.461 Effusion, right knee; M24.171 Other articular cartilage disorders, right ankle; Z11.59 Encounter for screening for other viral diseases; M45.9 Ankylosing spondylitis of unspecified sites in spine
CPT/HCPCS: 36415; 72110; 73030; 73502; 73564; 73610; 80053; 85025; 85652; 86038; 86140; 86481; 86704; 86706; 86709; 86803; 86812; 87340; 99212

== ENCOUNTER 2024-01-03 09:15 | Outpatient (AMB) | payer MEDICARE, SELFPAY ==
[2024-01-03 09:17] VITALS: BP 138/72; PULSE 82; O2SAT 99; BMI 26.5
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
== END 2024-01-03 09:40 | disposition home or self-care (01) ==
LOC: HO.RHE 09:16
PROVIDERS: PCP Nurse Practitioner Family; Visit Provider Student in an Organized Health Care Education/Training Program
DX: M35.3 Polymyalgia rheumatica (principal); Z79.52 Long term (current) use of systemic steroids
CPT/HCPCS: 99214

== ENCOUNTER → 2024-01-03 09:15 | Outpatient (BNVA) | payer MEDICARE, SELFPAY | PROVIDERS: PCP Nurse Practitioner Family; Visit Provider Student in an Organized Health Care Education/Training Program | DX: M35.3 Polymyalgia rheumatica (principal); Z79.52 Long term (current) use of systemic steroids; Z79.83 Long term (current) use of bisphosphonates | CPT/HCPCS: 99212 ==

== ENCOUNTER 2024-04-30 09:50 | Outpatient (REF) | payer OTHER, SELFPAY ==
[2024-04-30 10:04] LABS: MANUAL DIFF FLAG NO
[2024-04-30 10:44] LABS: Basophils Absolute Auto 0.1 X10*3/uL (0.0-0.2); Basophils Percent Auto 0.8 % (0-2); Eosinophils Absolute Auto 0.1 X10*3/uL (0.0-0.4); Eosinophils Percent Auto 0.8 % (0-4); Imm Gran Abs Auto 0.06 X10*3/uL (0.00-0.03); Imm Gran Pct Auto 0.6 % (0.0-0.4); Lymphocytes Absolute Auto 2.1 X10*3/uL (1.2-4.9); Lymphocytes Percent Auto 20.4 % (20-40); Mean Corpuscular HGB Conc 32.5 g/dl (31.0-35.0); Mean Corpuscular Hemoglobin 33.7 pg (27.0-33.0); Mean Corpuscular Volume 103.6 fL (80.0-98.0); Mean Platelet Volume 8.7 fL (9.4-12.3); Monocytes Absolute Auto 0.6 X10*3/uL (0.1-1.2); Monocytes Percent Auto 5.4 % (2-11); Neutrophils Absolute Auto 7.5 x10*3/uL (2.0-8.3); Platelet Count 335 X10*3/uL (160-400); Red Blood Count 3.86 X10*6/uL (4.20-5.50); Red Cell Distribution Width 13.4 % (11.0-16.0); White Blood Count 10.5 X10*3/uL (4.8-10.8)
[2024-04-30 11:08] LABS: Alanine Aminotransferase 24 U/L (0-31); Albumin Level 4.3 g/dL (3.5-5.0); Alkaline Phosphatase 33 U/L (39-117); Anion Gap 13 (12-20); Aspartate Amino Transferase 26 U/L (5-31); Bilirubin Total 0.2 mg/dL (0.0-1.0); Blood Urea Nitrogen 14 mg/dL (9-16); C Reactive Protein 0.16 mg/dL (< or = 0.50); Calcium 9.8 mg/dL (8.4-10.2); Carbon Dioxide 25 mmol/L (22-29); Chloride 108 mmol/L (96-108); Estimated Glomerular Filt Rate > 60; Glucose Random 111 mg/dL (60-115); Potassium 4.7 mmol/L (3.3-5.1); Sodium 141 mmol/L (135-145)
[2024-04-30 11:24] LABS: Erythrocyte Sedimentation Rate 4 MM/HR (0-20)
[2024-05-03 01:34] LABS: TS Negative Control Passed; TS Panel A 0; TS Panel B 0; TS Positive Control Passed; TSpotTB Negative (Negative)
== END 2024-04-30 09:51 | disposition home or self-care (01) ==
LOC: HO.LAB 09:50
PROVIDERS: PCP Nurse Practitioner Family; Visit Provider Student in an Organized Health Care Education/Training Program
DX: M35.3 Polymyalgia rheumatica (principal); Z11.7 Encounter for testing for latent tuberculosis infection
CPT/HCPCS: 36415; 80053; 85025; 85652; 86140; 86481

== ENCOUNTER 2024-05-09 10:23 | Outpatient (AMB) | payer OTHER, SELFPAY ==
--- NOTE | 2024-05-09 10:27 | MHC.OFFVIS ---
Vital Signs 05/09/24 10:36 Height 5 ft 5 in Weight 153 lb 10.595 oz BMI 25.6 BP 142/80 H Blood Pressure Location Lt brachial Position Sitting Pulse 89 Pulse Source Pulse Oximeter Pulse Oximetry (%) 98 Oxygen Delivery Method Room Air Intake Visit Reasons: PMR Intake Note: Patient presents for PMR. Allergies acetaminophen [From Percocet] Allergy (Verified 05/09/24 10:32) Nausea and Vomiting bupropion [From Wellbutrin] Allergy (Verified 05/09/24 10:32) Abdominal Pain oxycodone [From Percocet] Allergy (Verified 05/09/24 10:32) Nausea and Vomiting Medication List - Last Reconciled 05/09/24 by Aleena Chavez MD acetaminophen ER 1,300 mg PO Q12H alendronate 70 mg PO QWEEK aripiprazole 5 mg PO DAILY atorvastatin 10 mg PO DAILY clonazepam 0.25 mg PO BID clonidine HCl 0.1 mg PO BEDTIME glycopyrrolate 0 mg PO hydroxyzine HCl 25 mg PO TID latanoprost 0.005% 0 drps ophthalmic (eye) lisinopril 10 mg PO DAILY trazodone mg PO HPI Comments Details: Patient is a 73-year-old female with hyperlipidemia, osteoporosis, polyarticular osteoarthritis and polymyalgia rheumatica here today for follow up Interval History: Patient last seen 01/03/[address] Best. At that time she was following up for her PMR and had discontinued prednisone in November 2023. She had a flare of her PMR after that and was prescribed prednisone however only took it for 1 month and started taking natural supplements including sublingually CBD. It was discussed that her PMR was not being adequately treated and she was recommended to start Kevzara however she deferred and wanted to think about it Today she denies stiffness involving her shoulders and hips but is complaining of back pain with radiating to the left lower leg. Also intermittently gets hand, knee and shoulder pain but her current issue is the back No signs or symptoms concerning GCA Rheumatologic History: PMR dx around [address] Ann On and off prednisone since then has never been on any DMARDs Lasts prednisolone course was completed in 11/2023. Had a flare that was treated with Prednisone 12/2023 and has been subsequently off Prednisone since 01/2024 Current Rheumatology Medication(s): Alendronate 70mg PO weekly [facility] Medical History Bilateral foot pain Bilateral hand pain History of sleep disorder Hx of attention deficit disorder Hx of low back pain Hx of bipolar disorder History of anxiety Hx of essential hypertension Hx of hyperlipidemia Hx of idiopathic urticaria History of hyperthyroidism Hx of osteopenia Overweight with body mass index (BMI) of 29 to 29.9 in adult Hx of hyperkalemia History of macrocytosis custodial (current) use of systemic steroids History of polymyalgia rheumatica Surgical History History of open reduction and internal fixation (ORIF) procedure Hx of cervical spine surgery Social History Household Members: None Alcohol intake: current Alcohol intake frequency: holidays/special occasions only Patient Tobacco Use Status: Former Tobacco user Current occupational status: employed 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 Gender identity: Female Review of Systems Const Details: Review of Systems Constitutional: Denies fever, chills, weight loss ENT: Denies vision changes, eye pain or eye redness, dental caries, dry mouth GI: Denies nausea, vomiting, diarrhea, abdominal pain, change in BM Pulm: Denies SOB, DOHERTY, hemoptysis, wheezing Cards: Denies chest pain, palpitations Skin: Denies Raynaud's, rash, nail changes, photosensitivity, OUTREACH PROFESSIONAL: Denies headaches, weakness, paresthesias, recurrent falls MSK: as per HPI All other systems reviewed and are unremarkable except noted above Physical Exam Vital Signs: Last Vital Signs Pulse 89 05/09/24 10:36 BP 142/80 H 05/09/24 10:36 Pulse Ox 98 05/09/24 10:36 Oxygen Delivery Method Room Air 05/09/24 10:36 BMI result Body Mass Index 25.6 Vital signs reviewed Physical Examination CONSTITUITIONAL Patient alert and cooperative. Well appearing and in no apparent painful distress HEENT Conjunctiva and sclera clear. ?Pupils equal round and reactive to light. ?No lymphadenopathy. ? CHEST/RESPIRATORY SYSTEM Normal respiratory effort and able to speak in complete sentences. ?Clear to auscultation bilaterally. ?No crackles, rales, rhonchi, wheezes heard. CARDIAC SYSTEM Regular rate and rhythm. ?S1 and S2 heard no murmurs. ?Radial pulses intact bilaterally MSK Hands: ?Good contact lens cutter strength bilaterally. No deformities noted. ?No synovitis noted to the MCPs, PIPs or DIPs. ?Prominent Heberden's nodes and squaring of the 1st CMC. Wrists: ?Full range of motion at the wrists without pain. ?No tenderness to palpation or synovitis noted to the wrists. Elbows: Full range of motion without pain. No tenderness, weakness, swelling, increased warmth or erythema. Shoulders: Full range of motion without pain. No tenderness, weakness, swelling, increased warmth or erythema. Hips: Full range of motion without pain. Hip bursa: No tenderness to palpation Knees: ?Full range of motion. ?No tenderness, swelling, increased warmth or erythema.?Bilateral crepitations felt. No effusions Ankles: Full range of motion. ?No tenderness, swelling, increased warmth or erythema.? Feet: ?Negative squeeze test. ?No tenderness to palpation or swelling of the MTPs. Tender points:?No tenderness to palpation of the bilateral trapezius, supraspinatus, anterior costochondral junctions, bilateral gluteal areas, bilateral suboccipital muscle insertions Positive straight leg raise on the left SKIN Skin intact without rashes. Results Reviewed Results Reviewed: Laboratory Tests 04/30/24 10:03 WBC 10.5 RBC 3.86 L Hgb 13.0 Hct 40.0 Plt Count 335 ESR 4 Sodium 141 Potassium 4.7 Chloride 108 Carbon Dioxide 25 BUN 14 Creatinine 0.73 Total Bilirubin 0.2 AST 26 ALT 24 Alkaline Phosphatase 33 L C-Reactive Protein 0.16 XR Bilateral Shoulders/L Spine/Bilateral Knees/Bilateral Hips/Bilateral Ankles 10/31/23 FINDINGS: Shoulders: No fracture or malalignment. Symmetric [id number] acromioclavicular and mild glenohumeral osteoarthritis. Lumbar spine: Rotatory levoconvex scoliosis with severe degenerative disc disease throughout the lumbar spine. Marked disc space narrowing at L2-L3 where there may be partial fusion. Prominent endplate sclerosis and osteophytes of L1-L2 and L3-L4. Facet arthropathy more prominent at the lower lumbar levels. No acute fracture. Hips: Symmetric mild superomedial joint space narrowing. No fracture or malalignment. Moderate degenerative changes noted at the pubic symphysis. No suspicious bone lesion or soft tissue calcification. Knees: Medial compartment narrowing and small marginal osteophytes, left greater than right. [id number] bilateral joint effusions. No fracture or malalignment. No suspicious bone lesion. Ankles: Fracture fixation hardware of the right medial malleolus and distal fibula. Fractures appear healed. There is narrowing of the tibiotalar joint laterally, as well as at the junction of the distal fibula and the lateral process of the calcaneus with an adjacent small chronic ossification. The left ankle joint is unremarkable. Small bilateral heel spurs. Assessment & Plan Assessment & Plan (1) Polymyalgia rheumatica: Comment: dx around [address] Ann On and off prednisone since then has never been on any DMARDs Lasts prednisolone course was completed in 11/2023. Had a flare that was treated with Prednisone 12/2023 and has been subsequently off Prednisone since 01/2024 Code(s): M35.3 - Polymyalgia rheumatica Category: Medical Plan: #PMR Patient is a 73 y.o. female with PMR currently in remission as evidenced by improved clinical manifestation and normal inflammatory markers. No signs or symptoms concerning for GCA at this time Plan - Continue to monitor off prednisone - If return of sx may be a candidate for methotrexate given her fear of needles - RTC 6 months - Labs before visit: CBC, CMP, ESR, CRP (2) Polyarticular osteoarthritis: Code(s): M15.9 - Polyosteoarthritis, unspecified Plan: #Polyarticular OA Patient with polyarticular osteoarthritis involving several joints including her hands, shoulders, knees, hips and L-spine. Today her most significant pain is from her L-spine were positive straight leg raise confirming sciatica. Discussed with patient that osteoarthritis is a degenerative joint disease that there is no cure for. Given that her L-spine is the most significant cause of her discomfort I think she would benefit from gabapentin. She has tried gabapentin in the past and it was not efficacious but she was on a lower dose. I also recommended pain management with possible steroid injections to her back however patient has a fear of needles and would like to defer this option for now. In the meantime she has an appointment with physiatry and I encouraged her to keep this appointment. She currently gets opioids from her primary. I informed her that Rheumatology does not prescribe opioids except for tramadol. Patient states that tramadol does not help her pain. As she was previously prescribed this by her primary. The oxycodone does help but it is associated with nausea so I will give her some antinausea medication to help with that. Once her sciatica is improved we can discuss other treatment options for her other joints that have osteoarthritis. Plan - Gabapentin 600mg tid - Zofran 4mg q8hr prn for nausea - F/u with PT and Physiatry (has appts) (3) Osteoporosis: Code(s): M81.0 - Age-related osteoporosis without current pathological fracture Qualifiers: Osteoporosis type: age-related Presence of current pathological fracture: without current pathological fracture Qualified Code(s): M81.0 - Age-related osteoporosis without current pathological fracture Plan: #Osteoporosis Patient comes carrying a diagnosis of osteoporosis on alendronate. However no DEXA scan has been seen in our system. She normally gets these scans at [facility] [place] and reports that she had 1 done about a week ago. I requested patient to get the records sent over to us so that I can evaluate this. I asked her if she is taking vitamin-D supplementation she reassures me that she is. Plan - F/u DEXA Scan - Vit D supplementation - Alendronate 70mg weekly - Vitamin D at next blood draw in 6 months Plan I spent 35 minutes reviewing the record and labs, taking a history, examining the patient, discussing the treatment plan and documenting in the medical record Orders: Orders Comprehensive Met. Panel 6 Months E55.9 - Vitamin D deficiency, unspecified, M35.3 - Polymyalgia rheumatica Complete Blood Count Auto Diff 6 Months E55.9 - Vitamin D deficiency, unspecified, M35.3 - Polymyalgia rheumatica C Reactive Protein 6 Months E55.9 - Vitamin D deficiency, unspecified, M35.3 - Polymyalgia rheumatica Erythrocyte Sedimentation Rate 6 Months E55.9 - Vitamin D deficiency, unspecified, M35.3 - Polymyalgia rheumatica Vitamin D 25-OH (D2 and D3) 6 Months E55.9 - Vitamin D deficiency, unspecified, M35.3 - Polymyalgia rheumatica Medications: New ondansetron HCl 4 mg PO Q8H PRN 60 tabs 1RF nausea and vomiting R11.0 - Nausea gabapentin 600 mg PO TID 90 days 270 tabs 1RF M54.16 - Radiculopathy, lumbar region Changed From alendronate 70 mg PO QWEEK Z87.39 - Personal history of other diseases of the musculoskeletal system and connective tissue To alendronate 70 mg PO QWEEK 90 days 13 tabs 1RF Z87.39 - Personal history of other diseases of the musculoskeletal system and connective tissue Coding Level of Care Code Est Pt Level 4 (52733) Complex EM visit Add On G2211 Diagnoses Polymyalgia rheumatica M35.3 Polyarticular osteoarthritis M15.9 Age-related osteoporosis without current pathological fracture M81.0 Osteoporosis type: age-related Presence of current pathological fracture: without current pathological fracture
[2024-05-09 10:36] VITALS: BP 142/80; PULSE 89; O2SAT 98; BMI 25.6
== END 2024-05-09 11:28 | disposition home or self-care (01) ==
PROVIDERS: PCP Nurse Practitioner Family; Visit Provider Student in an Organized Health Care Education/Training Program
DX: M35.3 Polymyalgia rheumatica (principal); M15.9 Polyosteoarthritis, unspecified; M81.0 Age-related osteoporosis without current pathological fracture
CPT/HCPCS: 99214; G2211

== ENCOUNTER → 2024-05-09 10:23 | Outpatient (BNVA) | payer OTHER, SELFPAY | PROVIDERS: PCP Nurse Practitioner Family; Visit Provider Student in an Organized Health Care Education/Training Program | DX: M35.3 Polymyalgia rheumatica (principal); M15.9 Polyosteoarthritis, unspecified; M81.0 Age-related osteoporosis without current pathological fracture; E55.9 Vitamin D deficiency, unspecified; Z87.39 Personal history of other diseases of the musculoskeletal system and connective tissue | CPT/HCPCS: 99212 ==

== ENCOUNTER 2024-06-30 12:08 | Outpatient (REF) | payer OTHER, SELFPAY ==
[2024-06-30 12:28] LABS: MANUAL DIFF FLAG NO
[2024-06-30 12:45] LABS: Basophils Absolute Auto 0.1 X10*3/uL (0.0-0.2); Basophils Percent Auto 0.7 % (0-2); Eosinophils Absolute Auto 0.4 X10*3/uL (0.0-0.4); Eosinophils Percent Auto 3.4 % (0-4); Hematocrit 37.3 % (37.0-47.0); Hemoglobin 11.7 g/dl (12.0-16.0); Imm Gran Abs Auto 0.03 X10*3/uL (0.00-0.03); Imm Gran Pct Auto 0.3 % (0.0-0.4); Lymphocytes Absolute Auto 3.1 X10*3/uL (1.2-4.9); Lymphocytes Percent Auto 29.3 % (20-40); Mean Corpuscular HGB Conc 31.4 g/dl (31.0-35.0); Mean Corpuscular Hemoglobin 32.3 pg (27.0-33.0); Mean Platelet Volume 8.7 fL (9.4-12.3); Monocytes Absolute Auto 0.7 X10*3/uL (0.1-1.2); Monocytes Percent Auto 6.5 % (2-11); Neutrophils Absolute Auto 6.4 x10*3/uL (2.0-8.3); Neutrophils Percent Auto 59.8 % (45-73); Platelet Count 351 X10*3/uL (160-400); Red Blood Count 3.62 X10*6/uL (4.20-5.50); White Blood Count 10.7 X10*3/uL (4.8-10.8)
[2024-06-30 13:06] LABS: Alanine Aminotransferase 12 U/L (0-31); Albumin Level 4.1 g/dL (3.5-5.0); Alkaline Phosphatase 37 U/L (39-117); Anion Gap 12 (12-20); Aspartate Amino Transferase 26 U/L (5-31); Bilirubin Total 0.3 mg/dL (0.0-1.0); Blood Urea Nitrogen 11 mg/dL (9-16); C Reactive Protein 1.17 mg/dL (< or = 0.50); Calcium 9.4 mg/dL (8.4-10.2); Carbon Dioxide 24 mmol/L (22-29); Chloride 106 mmol/L (96-108); Cholesterol 171 mg/dL (<200); Estimated Glomerular Filt Rate > 60; Glucose Random 91 mg/dL (60-115); HDL Cholesterol 54 mg/dL (>40); LDL Cholesterol Calculated 90 mg/dL (<100); Potassium 4.3 mmol/L (3.3-5.1); Sodium 138 mmol/L (135-145); Total Protein 6.8 g/dL (6.5-8.0); Triglycerides 135 mg/dL (<150)
[2024-06-30 13:32] LABS: HBc Num1 0.07 S/CO (0.00-0.79); HBsAGNum1 0.41 S/CO (0.00-0.99); Hepatitis B Core Antibody Nonreactive (Nonreactive); Hepatitis B Surface Antigen Negative (Negative); ~HepC Num1 0.08 S/CO (0.00-0.79); ~Hepatitis B Surface Antibody NONREACTIVE (Nonreactive); ~Hepatitis C Antibody Nonreactive (Nonreactive)
[2024-06-30 13:38] LABS: Erythrocyte Sedimentation Rate 23 MM/HR (0-20)
[2024-07-01 08:02] LABS: ~Hepatitis A Antibody IgM Nonreactive (Nonreactive)
[2024-07-02 18:08] LABS: TS Negative Control Passed; TS Panel A 1; TS Panel B 0; TS Positive Control Passed; TSpotTB Negative (Negative)
== END 2024-06-30 12:09 | disposition home or self-care (01) ==
LOC: HO.LAB 12:08
PROVIDERS: PCP Nurse Practitioner Family; Visit Provider Student in an Organized Health Care Education/Training Program
DX: M35.3 Polymyalgia rheumatica (principal)
CPT/HCPCS: 36415; 80053; 80061; 85025; 85652; 86140; 86481; 86704; 86706; 86709; 86803; 87340

== ENCOUNTER 2024-11-12 10:12 | Outpatient (REF) | payer OTHER, SELFPAY ==
[2024-11-12 10:31] LABS: MANUAL DIFF FLAG NO
[2024-11-12 11:13] LABS: Hematocrit 37.5 % (37.0-47.0); Hemoglobin 12.7 g/dl (12.0-16.0); Imm Gran Abs Auto 0.03 X10*3/uL (0.00-0.03); Imm Gran Pct Auto 0.3 % (0.0-0.4); Lymphocytes Absolute Auto 1.9 X10*3/uL (1.2-4.9); Mean Corpuscular HGB Conc 33.9 g/dl (31.0-35.0); Mean Corpuscular Hemoglobin 35.6 pg (27.0-33.0); Mean Corpuscular Volume 105.0 fL (80.0-98.0); NRBC Abs Auto 0.000 X10*3/uL (0.0-0.012); NRBC Pct Auto 0.0 /100WBC (0.0-0.2); Platelet Count 286 X10*3/uL (160-400); Red Blood Count 3.57 X10*6/uL (4.20-5.50); White Blood Count 9.3 X10*3/uL (4.8-10.8)
[2024-11-12 12:00] LABS: Alanine Aminotransferase 110 U/L (0-31); Albumin Level 4.4 g/dL (3.5-5.0); Alkaline Phosphatase 256 U/L (39-117); Anion Gap 16 (12-20); Aspartate Amino Transferase 103 U/L (5-31); Blood Urea Nitrogen 12 mg/dL (9-16); Calcium 9.8 mg/dL (8.4-10.2); Carbon Dioxide 24 mmol/L (22-29); Chloride 105 mmol/L (96-108); Estimated Glomerular Filt Rate > 60; Potassium 4.6 mmol/L (3.3-5.1); Sodium 140 mmol/L (135-145); Total Protein 6.9 g/dL (6.5-8.0)
--- OUTSIDE RECORDS SUMMARY | 2024-11-12 12:24 | XMS_ITS | Encounter Summary ---
Author Organization [facility] Address [address] [place] [phone] Phone Care Team Providers Care Carcass Splitter Name Role Phone Renata Gil NP Primary Care Provid er Encounter Details Date Type Department Care Team (Late st Contact Info) Description 09/09/2020 Procedure [facility], [address] [id number] Social History Tobacco Use Types Packs/Day Years Used Date Smoking Tobacco: Never Assessed Comments Unknown Sex and Gender Information Value Date Recorded Sex Assigned at Not on file Legal Sex Female 9:59 PM EDT Gender Identity Not on file Sexual Orientation Not on file documented as of this encounter Plan of Treatment Not on file documented as of this encounter Visit Diagnoses Not on filedocumented in this encounter Care Teams Carcass Splitter Relationship Specialty Start Date End Date Renata Gil NP [address] [place] [phone] [email or web address] PCP - General Family Medicine 03/11/20 documented as of this encounter Additional Source Comments The information contained in this document represents components of the legal health record. It is not the complete legal health record.[facility]
--- OUTSIDE RECORDS SUMMARY | 2024-11-12 12:24 | XMS_ITS | Encounter Summary ---
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 Not on howie e 06/30/2022 Are you concerned about learning? Not on file 06/30/2022 No 06/30/2022 No 06/30/2022 Digital Access Answer Date Recorded No 07/31/2022 No 07/31/2022 Reliable internet access at home? Not on file 07/31/2022 Device with a working camera? Not on file Comments Unknown Sex and Gender Information Value Date Recorded Sex Assigned at Not on file Legal Sex Female 9:59 PM EDT Gender Identity Not on file Sexual Orientation Not on file documented as of this encounter Plan of Treatment Not on file documented as of this encounter Visit Diagnoses Diagnosis Age-related osteoporosis without current pathological fracture- Primary Other senior care (current) drug therapy documented in this encounter Care Teams Body Technician/Painter Relationship Specialty Start Date End Date Renata Gil NP [address] [place] [phone] [email or web address] PCP - General Family Medicine 03/11/20 documented as of this encounter Additional Source Comments The information contained in this document represents components of the legal health record. It is not the complete legal health record.[facility]
--- OUTSIDE RECORDS SUMMARY | 2024-11-12 12:24 | XMS_ITS | Clinical Summary ---
Author Organization [facility] Address [address] [facility] [address] [place] [phone] Phone Care Team Providers Care Systems Librarian Name Role Phone Renata Gonzales NP Primary Care Provid er Allergies Active Allergy Reactions Criticality Noted Date Comments Bupropion 01/07/2020 stomach gets weird Oxycodone-Acetaminophe n Nausea And Vomiting 01/07/2020 Medications alendronate (FOSAMAX) 70 MG tablet 06/16/2024 Active ARIPiprazole (ABILIFY) 5 MG tablet Take 5 mg by mouth daily. Active atorvastatin (LIPITOR) 10 MG tablet Take 10 mg by mouth daily. Active clonazePAM (KLONOPIN) 0.5 MG tablet Take 0.5 mg by mouth 2 (two) times a day as needed. 04/29/2024 Active gabapentin (NEURONTIN) 600 MG tablet 06/16/2024 Active glycopyrrolate (ROBINUL) 1 mg tablet Take 1 mg by mouth 2 (two) times a day. 06/16/2024 Active latanoprost (XALATAN) 0.005 % ophthalmic solution 06/17/2024 Active lisinopril (PRINIVIL,ZESTR IL) 10 MG tablet Take 10 mg by mouth daily. 06/16/2024 Active ondansetron (ZOFRAN) 4 MG tablet 05/26/2024 Active traZODone (DESYREL) 50 MG tablet Take 50 mg by mouth nightly at bedtime. Active predniSONE (DELTASONE) 10 MG tablet Take 10 mg by mouth daily. Active cholestyramine (QUESTRAN) 4 gram powder 10/18/2024 Active hydrOXYzine (ATARAX) 25 MG tablet Take 25 mg by mouth every 8 (eight) hours as needed for itching. 09/15/2024 Active Encounters Date Type Department Care Team Description 10/30/2024 12:30 PM EDT - 10/30/2024 1:00 PM EDT Surgery [facility] Endoscopy Admitting Dept Virtual Department [address] [place] [id number] Rocky Roque MD COLONOSCOPY 10/30/2024 12:03 PM EDT Anesthesia Event [facility] Endoscopy Admitting Dept Virtual Department [address] [place] [address] Laura Perez MD 10/30/2024 10:59 AM EDT - 10/30/2024 1:00 PM EDT Hospital Encounter [facility] Admitting Dept Virtual Department [address] [place] [address] Rocky Roque MD Discharge Disposition: Home or Self Care 10/30/2024 Procedure Pass [facility] Endoscopy Admitting Dept Virtual Department [address] [place] [id number] 10/24/2024 10:15 AM EDT Pre-Admission Testing Pre Procedure Evaluation [address] [place] [address] Rocky Roque MD 10/08/2024 9:17 AM EDT - 10/08/2024 11:59 PM EDT Hospital Encounter [address] [address] Tiffanie Sorto NP Discharge Disposition: Home or Self Care 10/02/2024 Procedure Pass [address] [address] 10/02/2024 Transcribe Orders Virtual Department [address] [place] [id number] Tiffanie Sorto NP Disease of pancreas (Primary Dx) 10/01/2024 11:55 AM EDT - 10/01/2024 4:15 PM EDT Emergency [facility] Emergency [address] [place] [phone] Discharge Disposition: Left Against Medical Advice 10/01/2024 Procedure Pass [facility], Ct Scan - [facility] [address] [place] [address] from Last 3 Months Social History Tobacco Use Types Packs/Day Years Used Date Smoking Tobacco: Former Cigarettes Q uit: 1985 Smokeless Tobacco: Never Tobacco Cessation:Counseling Given: Not Answered Alcohol Use Standard Drinks/Week Comments Not Currently 0 (1 standard drink = 0.6 oz pur e alcohol) Education Answer Date Recorded Are you interested in more education? Not on howie e 06/30/2022 Are you concerned about learning? Not on file 06/30/2022 No 06/30/2022 No 06/30/2022 Digital Access Answer Date Recorded No 07/31/2022 No 07/31/2022 Reliable internet access at home? Not on file 07/31/2022 Device with a working camera? Not on file Intimate Partner Violence Answer Date R ecorded Are you denied basic needs s uch as food, clothing, or medical care? No 10/30/2024 In the past 12 months have y ou been in a relationship with a person who hurts, threatens, or tries to control you? No 10/30/2024 Are you denied basic needs s uch as food, clothing, or medical care? No 10/30/2024 In the past 12 months have y ou been in a relationship with a person who hurts, threatens, or tries to control you? No 10/30/2024 Comments Unknown Sex and Gender Information Value Date Recorded Sex Assigned at Not on file Legal Sex Female 9:59 PM EDT Gender Identity Not on file Sexual Orientation Not on file Last Filed Vital Signs Vital Sign Reading Time Taken Comments Blood Pressure 142/66 10/30/2024 12:40 PM EDT Pulse 73 10/30/2024 12:40 PM EDT Temperature 36.1 C (97 F) 10/30/2024 12:25 PM EDT Respiratory Rate 20 10/30/2024 12:40 PM EDT Oxygen Saturation 97% 10/30/2024 12:40 PM EDT Inhaled Oxygen Concentration - - Weight 59.4 kg (131 lb) 10/24/2024 12:48 PM EDT Height 162.6 cm (5' 4 ) 10/24/2024 12:48 PM EDT Body Mass Index 22.49 10/24/2024 12:48 PM EDT Plan of Treatment Health Maintenance Due Date Last Done Comments LIPID PANEL 1950 DEPRESSION SCREENING 1963 HEPATITIS C SCREENING 12/02/1969 MAMMOGRAM 1991 COLOGUARD 12/02/1996 FIT TEST 12/02/1996 FOBT 12/02/1996 SIGMOIDOSCOPY 12/02/1996 VIRTUAL COLONOSCOPY 12/02/1996 PNEUMOCOCCAL VACCINES (50+ years) (1 of 1 - PCV) 12/02/2001 INFLUENZA VACCINE (#1) 2024 , 02/16/2023, 11/30/2021, Additional history exists COVID-19 VACCINE (2024- season) 2024 02/02/2023, 12/27/2021, 07/12/2021, Additional history exists CREATININE LEVEL 10/01/2025 10/01/2024 POTASSIUM LEVEL 10/01/2025 10/01/2024, 03/05, 03/12/2020 SMOKING Hx and SMOKELESS TOBACCO SCREENING 10/30/2025 10/30/2024 Adult Td,Tdap Booster 09/12/2033 09/13/2023 COLONOSCOPY 10/30/2034 10/30/2024 COLORECTAL CANCER SCREENING 10/30/2034 RSV VACCINE Completed 02/02/2023 ZOSTER VACCINES Completed 02/16/2023, 11/04, 07/12/2021 OSTEOPOROSIS SCREENING INITIAL (ONE-TIME) Completed 03/18/2024 HEPATITIS A VACCINES Aged Out No long er eligible based on patient's age to complete this topic HIB VACCINES Aged Out No longer eligi ble based on patient's age to complete this topic MENINGOCOCCAL VACCINES (ACWY) Aged Out No longer eligible based on patient's age to complete this topic MENINGOCOCCAL VACCINES (B) Aged Out N o longer eligible based on patient's age to complete this topic Medical Devices Implanted Type Area Housefellow Device Identifier Shelf Expiration Date Model / Serial / Lot Screws And Pins-Ankle Procedures Procedure Name Priority Date/Time Associated Diagnosis Comments TX COLSC FLX W/RMVL OF TUMOR POLYP LESION SNARE TQ 10/30/2024 12:04 PM EDT Abnormal liver function Abnormal liver diagnostic imaging TX COLONOSCOPY W/BIOPSY SINGLE/MULTIPLE 10/30/2024 12:04 PM EDT Abnormal liver function Abnormal liver diagnostic imaging TX COLONOSCOPY FLX DX W/MECHELLE J SPEC WHEN PFRMD 10/30/2024 12:04 PM EDT Abnormal liver function Abnormal liver diagnostic imaging ENDOSCOPY, COLON 10/30/2024 12:00 PM EDT ANATOMIC PATHOLOGY Routine 10/30/2024 12:00 AM EDT MRI CHOLANGIOPANCREATOGRAPHY (MRCP) WITH AND WITHOUT CONTRAST Routine 10/08/2024 10:40 AM EDT Disease of pancreas CT ABDOMEN/PELVIS WITH CONTRAST Routine 10/01/2024 2:06 PM EDT US ABDOMEN LIMITED RIGHT UPP ER QUADRANT Routine 10/01/2024 1:58 PM EDT URINALYSIS W/REFLEX URINE CULTURE STAT 10/01/2024 12:41 PM EDT LIPASE STAT 10/01/2024 12:08 PM EDT LFTS (HEPATIC PANEL) STAT 10/01/2024 12:08 PM EDT BASIC METABOLIC PANEL STAT 10/01/2024 12:08 PM EDT CBC AND DIFFERENTIAL STAT 10/01/2024 12:08 PM EDT BD DXA AXIAL (SPINE) WITH HIP Routine 10:00 AM EST Asymptomatic menopausal state from Last 3 Months or Most Recently Relevant to Health Maintenance Results * ENDOSCOPY, COLON (10/30/2024 12:00 PM EDT) Narrative Transcriptions Rocky Roque MD - 10/30/2024 12:00 PM EDT [facility] Patient Name: Jaclyn Mcdaniels Attending MD:: ROCKY ROQUE MD, Procedure Date: 10/30/2024 12:00 PM Date of : 1950 Age: 73 Admit Type: Outpatient Gender: Female Room: [place] [address] Referring MD: Renata Gonzales Exam Type: Colonoscopy Indications: Screening for colorectal malignant neoplasm, Thisis the patient's first colonoscopy Medications: Monitored Anesthesia Care Procedure: Informed consent was obtained from the patientafter discussion of the indications, limitations, alternatives, benefits, and risks of the procedure. Risks specifically discussed include but are not limited to medication reactions, missed lesions, bleeding, perforation, or the need for emergent surgery. Throughout the procedure, the patient's blood pressure, pulse, end-tidal CO2, and oxygensaturations were monitored continuously. The Olympus pediatric variable [id number] #1 was introduced through the anus and advanced tothe cecum, identified by the appendiceal orifice, ileocecal valve and palpation. The colonoscopy was somewhat difficult due to a redundant colon, significant looping and a tortuous colon.Successful completion of the procedure was aided by applying abdominal pressure. The patient tolerated the procedure fairly well. The quality of the bowel preparation was evaluated using the BBPS (BostonBowel Preparation Scale) with scores of: Right Colon = 3, Transverse Colon = 3 and Left Colon = 3 (entiremucosa seen well with no residual staining, smallfragments of stool or opaque liquid). The total BBPS score equals 9. The ileocecal valve, appendiceal orifice, and rectum were photographed. Complications: No immediate complications. Estimated blood loss: Minimal. Findings: The perianal and digital rectal examinations were normal. Pertinent negatives include normalsphincter tone. A 5 mm polyp was found in the hepatic flexure. The polyp was semi-sessile. The polyp was removed witha cold snare. Resection and retrieval were complete. Estimated blood loss was minimal. Two sessile polyps were found at 50 cm proximal tothe anus. The polyps were 4 to 6 mm in size. Thesepolyps were removed with a cold snare. Resection and retrieval were complete. Estimated blood loss was minimal. Retroflexion in the right colon was performed. Many small and large-mouthed diverticula were foundin the sigmoid colon and descending colon. A segmental area of mild melanosis was found at the hepatic flexure, in the ascending colon and in the cecum. The exam was otherwise without abnormality ondirect and retroflexion views. Non-bleeding internal hemorrhoids were found during retroflexion. The hemorrhoids were small. Impression: - One 5 mm polyp at the hepatic flexure, removedwith a cold snare. Resected and retrieved. - Two 4 to 6 mm polyps at 50 cm proximal to theanus, removed with a cold snare. Resected andretrieved. - Diverticulosis in the sigmoid colon and in the descending colon. - Melanosis in the colon. - The examination was otherwise normal on directand retroflexion views. - Non-bleeding internal hemorrhoids. Recommendation: - I will send results of your biopsy to you and your referringphysician or provider. If you do not receive notification within 3 weeks,please call our office. - Repeat colonoscopy in 5 years for surveillance based on pathology results. ROCKY ROQUE MD 10/30/2024 12:24:01 PM This report has been signed electronically. Number of Addenda: 0 Note Initiated On: 10/30/2024 12:00 PM Procedure Code(s): --- Professional --- 91493, Colonoscopy, flexible; with removal of tumor(s), polyp(s), or other lesion(s) by snare technique --- Technical --- 57660, Colonoscopy, flexible; with removal of tumor(s), polyp(s), or other lesion(s) by snare technique Diagnosis Code(s): --- Professional --- Z12.11, Encounter for screening for malignantneoplasm of colon D12.3, Benign neoplasm of transverse colon (hepatic flexure or splenic flexure) K57.30, Diverticulosis of large intestine without perforation or abscess without bleeding --- Technical --- Z12.11, Encounter for screening for malignantneoplasm of colon D12.3, Benign neoplasm of transverse colon (hepatic flexure or splenic flexure) K57.30, Diverticulosis of large intestine without perforation or abscess without bleeding CPT copyright 2021 [employer]. All rights reserved. The codes documented in this report are preliminary and upon security infrastructure engineer reviewmay be revised to meet current compliance requirements. Procedure Date: 10/30/2024 12:00:[address] [place] [id number] Renata Gonzales NP GI PROCEDURE ORDERAB LES Final Result * Anatomic Pathology (10/30/2024 12:00 AM EDT) 10/30/2024 10/30/2024 1:1 5 PM EDT Narrative SEE NARRATIVE - 11/04/2024 9:21 AM EDT [address] [address] Rolling Attendant: Travis Toney MD Surgical Pathology Report FINAL PATHOLOGIC DIAGNOSIS: A. COLON POLYP AT HEPATIC FLEXURE: Adenomatous polyp. B. COLON POLYP AT 50 CM: Adenomatous polyp. Electronically Signed Out By Travis Toney MD By his/her signature above, the pathologist listed as making the Final Diagnosis certifies that he/she has personally reviewed this case and confirmed or corrected the diagnosis. CLINICAL HISTORY Screening colonoscopy SPECIMENS SUBMITTED: A: COLON AT HEPATIC FLEXURE, POLYP B: COLON AT 50 CM, POLYPS X 2 GROSS DESCRIPTION A. COLON AT HEPATIC FLEXURE, POLYP: Received in formalin is a 0.5 x 0.4 x 0.3 cm irregular portion of marques-pink soft tissue which is submitted in toto in a single cassette labeled A1. B. COLON AT 50 CM, POLYPS X 2: Received in formalin is a 0.4 x 0.3 x 0.3 cm irregular portion of marques-red mucosal tissue which is submitted in toto in a single cassette labeled B1. Grossed by: GALDINO Mariee PA([facility]) [id number] 10/30/2024 Grossing Staff: [id number] Patient Name: JACLYN MCDANIELS : 1950 (Age: 73) Sex: F Institution: [facility] Location: [facility] Date of Operation: 10/30/2024 Date of Reported: 11/04/2024 09:21 Results To: Rocky Gonzales SHOE DESIGNER us Rocky Roque MD PATHOLOGY ORDERABLES Final Res ult SEE NARRATIVE * MRI CHOLANGIOPANCREATOGRAPHY (MRCP) WITH AND WITHOUT CONTRAST (10/08/2024 10:40 AM EDT) MGB IMG RECOMMENDATION COMMENT liver lesion [facility] Anatomical Region Laterality Modality Pancreas, Biliary Magnetic Reson ance 10/13/2024 2:41 PM EDT Impressions 10/13/2024 2:54 PM EDT 1. Signal alteration in the pancreatic head without restricted diffusion, and without pancreatic ductal dilatation. The imaging features suggest focal fat infiltration in the pancreatic head. This could be confirmed with endoscopic ultrasound as clinically appropriate and if this persists. 2. No biliary ductal dilatation. 3. There is a simple hepatic cyst. A second hepatic lesion is 6 mm in size and is incompletely characterized but is likely benign. 4. A follow-up study in 3-6 months to ensure stability of these findings is advised as clinically appropriate. RECOMMEND: MRI abdomen between 3 months and 6 months for liver lesion. Follow-up recommendations were communicated and documented using a closed loop communication system. Narrative 10/13/2024 2:54 PM EDT MRI CHOLANGIOPANCREATOGRAPHY (MRCP) WITH AND WITHOUT CONTRAST Referring clinician's provided indication for this examination in Epic: Outside Radiology Order TECHNIQUE: Multiplanar MR imaging of the abdomen was performed using T1, T2, fat saturated, and diffusion weighted techniques. 2D and 3D MRCP sequences were performed. Dynamic multiphase imaging was also performed after administration of an intravenous gadolinium contrast agent. COMPARISON: Prior studies including 10/01/2024 FINDINGS: Lower Chest: No effusions. Liver: Simple cyst in the right hepatic lobe measures 6 mm (11:39). This is T2 hyperintense, T1 hypointense and nonenhancing. An area of heterogeneity in the inferior right hepatic lobe (1002:93) measures 6 mm and is isointense to liver on T1 and T2-weighted imaging, without restricted diffusion. It is hypoenhancing to the liver on early phase postcontrast becomes isointense on later phase postcontrast. The exact etiology of this lesion is uncertain, but is without aggressive features. Biliary: No biliary ductal dilatation. Spleen: No splenomegaly or focal lesion. Pancreas: No pancreatic ductal dilatation or peripancreatic inflammation. Pancreatic head is relatively hypoenhancing compared to the remainder of the pancreas and there is loss of signal in the pancreatic head on in phase imaging (802:76) relative to out of phase imaging (801:76). Findings suggest focal fat in the pancreatic head. Adrenal Glands: No nodules. Kidneys/Ureters: No hydronephrosis or enhancing renal lesion. Right lower pole cyst. Bowel: No dilatation or wall thickening. Peritoneum/Retroperitoneum: No suspicious free fluid in the abdomen. Lymph Nodes: No suspicious enlarged lymph nodes in the abdomen. Vessels: No abdominal aortic aneurysm. Patent portal vein. Bones/Soft Tissues: Levoconvex scoliotic curvature in the lumbar spine. Procedure Note Yves Sher MD - 10/13/2024 MRI CHOLANGIOPANCREATOGRAPHY (MRCP) WITH AND WITHOUT CONTRAST Referring clinician's provided indication for this examination in [facility]:Outside Radiology Order TECHNIQUE: Multiplanar MR imaging of the abdomen was performed using T1,T2, fat saturated, and diffusion weighted techniques. 2D and 3D MRCPsequences were performed. Dynamic multiphase imaging was also performedafter administration of an intravenous gadolinium contrast agent. COMPARISON: Prior studies including 10/01/2024 FINDINGS: Lower Chest: No effusions. Liver: Simple cyst in the right hepatic lobe measures 6 mm (11:39). Thisis T2 hyperintense, T1 hypointense and nonenhancing. An area of heterogeneity in the inferior right hepatic lobe (1002:93)measures 6 mm and is isointense to liver on T1 and T2-weighted imaging,without restricted diffusion. It is hypoenhancing to the liver on earlyphase postcontrast becomes isointense on later phase postcontrast. Theexact etiology of this lesion is uncertain, but is without aggressivefeatures. Biliary: No biliary ductal dilatation. Spleen: No splenomegaly or focal lesion. Pancreas: No pancreatic ductal dilatation or peripancreatic inflammation.Pancreatic head is relatively hypoenhancing compared to the remainder ofthe pancreas and there is loss of signal in the pancreatic head on inphase imaging (802:76) relative to out of phase imaging (801:76). Findingssuggest focal fat in the pancreatic head. Adrenal Glands: No nodules. Kidneys/Ureters: No hydronephrosis or enhancing renal lesion. Right lowerpole cyst. Bowel: No dilatation or wall thickening. Peritoneum/Retroperitoneum: No suspicious free fluid in the abdomen. Lymph Nodes: No suspicious enlarged lymph nodes in the abdomen. Vessels: No abdominal aortic aneurysm. Patent portal vein. Bones/Soft Tissues: Levoconvex scoliotic curvature in the lumbar spine. IMPRESSION: 1. Signal alteration in the pancreatic head without restricted diffusion,and without pancreatic ductal dilatation. The imaging features suggestfocal fat infiltration in the pancreatic head. This could be confirmedwith endoscopic ultrasound as clinically appropriate and if thispersists. 2. No biliary ductal dilatation. 3. There is a simple hepatic cyst. A second hepatic lesion is 6 mm insize and is incompletely characterized but is likely benign. 4. A follow-up study in 3-6 months to ensure stability of these findingsis advised as clinically appropriate. RECOMMEND: MRI abdomen between 3 months and 6 months for liver lesion. Follow-up recommendations were communicated and documented using a closedloop communication system. us Tiffanie Sorto NP IMG MR ABDOMEN Final Result * CT ABDOMEN/PELVIS WITH CONTRAST (10/01/2024 2:06 PM EDT) MGB IMG SKILLED NURSING CASE MANAGER COMMENT A 2.0 cm hypodense area in the pancreatic head/uncinate process could represent focal fat infiltration but underlying pancreatic lesion not excluded given reported jaundice. [facility] Anatomical Region Laterality Modality Abdomen, Pelvis Computed Tomogra phy 10/01/2024 2:51 PM EDT Addenda Addendum by Juani Kaplan MD on 10/03/2024 6:46 PM EDT ADDENDUM: This addendum is to clarify the follow-up recommendations associated with the report. MRCP is recommended to further evaluate the pancreatic findings described. A follow-up recommendation was submitted. Impressions 10/01/2024 4:20 PM EDT 1. A 2.0 cm hypodense area in the pancreatic head/uncinate process could represent focal fat infiltration but underlying pancreatic lesion not excluded given reported jaundice. No pancreatic ductal or biliary tract dilatation. No lymphadenopathy. MRCP is recommended for further evaluation. 2. An 8 mm indeterminate lesion in the inferior liver. Additional 7 mm right hepatic lobe lesion is likely a cyst. Consider further evaluation with MRI. A clinically significant result was initiated on 10/01/2024 4:20 PM, Message ID [id number]. ATTESTATION: I, Trang Chacon as teaching physician, have reviewed the images for this case and if necessary edited the report originally created by Gianluca Bill. Narrative 10/01/2024 4:[address] ABDOMEN/PELVIS WITH CONTRAST Referring clinician's provided indication for this examination in Epic: * Pancreatic adenocarcinoma, staging TECHNIQUE: Multidetector-row CT of the abdomen and pelvis was performed after administration of intravenous contrast using tailored dose modulation techniques. Images were reconstructed in the axial, coronal, and sagittal planes. COMPARISON: None. FINDINGS: Lower Chest: No consolidation or pleural effusions. Linear right basilar scarring versus atelectasis. No suspicious nodules at the visualized lung bases. Liver: 7 mm hypodense lesion in the right hepatic lobe adjacent to the right portal vein (5:200) is too small to characterize however demonstrates attenuation of a cyst. Additional 8 x 7 mm hypodense lesion in the inferior liver at the junction of the right and left hepatic lobes (5:344) is indeterminate and too small to characterize. Biliary: Contracted gallbladder. No biliary ductal dilatation. Spleen: No splenomegaly or focal lesions. Pancreas: There is a 2.0 x 1.5 cm hypodense area in the pancreatic head/uncinate process (5:262) with abutment of the superior mesenteric vein. No definitive contact with the portal vein or SMV. No definitive pancreatic ductal dilatation. Adrenal Glands: No nodules. Kidneys/Ureters: 1.4 cm right lower pole renal cyst. No solid masses, stones, or hydronephrosis. Right extrarenal pelvis is noted. Bowel: Normal appendix. No bowel wall thickening or distention. Colonic diverticulosis without diverticulitis. Peritoneum/Retroperitoneum: No free fluid. Lymph Nodes: No lymphadenopathy. Pelvic Organs/Bladder: Partially decompressed bladder. No suspicious adnexal mass. Vessels: There are moderate multifocal atherosclerotic calcifications of the aorta and its major branches. No abdominal aortic aneurysm. Bones/Soft Tissues: Levoscoliosis of the lumbar spine with advanced degenerative changes. Procedure Note Juani Kaplan MD - 10/01/2024 CT ABDOMEN/PELVIS WITH CONTRAST Referring clinician's provided indication for this examination in Epic: *Pancreatic adenocarcinoma, staging TECHNIQUE: Multidetector-row CT of the abdomen and pelvis was performedafter administration of intravenous contrast using tailored dosemodulation techniques. Images were reconstructed in the axial, coronal,and sagittal planes. COMPARISON: None. FINDINGS: Lower Chest: No consolidation or pleural effusions. Linear right basilarscarring versus atelectasis. No suspicious nodules at the visualized lungbases. Liver: 7 mm hypodense lesion in the right hepatic lobe adjacent to theright portal vein (5:200) is too small to characterize howeverdemonstrates attenuation of a cyst. Additional 8 x 7 mm hypodense lesionin the inferior liver at the junction of the right and left hepatic lobes(5:344) is indeterminate and too small to characterize. Biliary: Contracted gallbladder. No biliary ductal dilatation. Spleen: No splenomegaly or focal lesions. Pancreas: There is a 2.0 x 1.5 cm hypodense area in the pancreatichead/uncinate process (5:262) with abutment of the superior mesentericvein. No definitive contact with the portal vein or SMV. No definitivepancreatic ductal dilatation. Adrenal Glands: No nodules. Kidneys/Ureters: 1.4 cm right lower pole renal cyst. No solid masses,stones, or hydronephrosis. Right extrarenal pelvis is noted. Bowel: Normal appendix. No bowel wall thickening or distention. Colonicdiverticulosis without diverticulitis. Peritoneum/Retroperitoneum: No free fluid. Lymph Nodes: No lymphadenopathy. Pelvic Organs/Bladder: Partially decompressed bladder. No suspiciousadnexal mass. Vessels: There are moderate multifocal atherosclerotic calcifications ofthe aorta and its major branches. No abdominal aortic aneurysm. Bones/Soft Tissues: Levoscoliosis of the lumbar spine with advanceddegenerative changes. IMPRESSION: 1. A 2.0 cm hypodense area in the pancreatic head/uncinate process couldrepresent focal fat infiltration but underlying pancreatic lesion notexcluded given reported jaundice. No pancreatic ductal or biliary tractdilatation. No lymphadenopathy. MRCP is recommended for furtherevaluation. 2. An 8 mm indeterminate lesion in the inferior liver. Additional 7 mmright hepatic lobe lesion is likely a cyst. Consider further evaluationwith MRI. A clinically significant result was initiated on 10/01/2024 4:20 PM,Message ID [id number]. ATTESTATION: Trang Powell as teaching physician, havereviewed the images for this case and if necessary edited the reportoriginally created by Gianluca Bill. us Sylvia Perez PA-C IMG CT ABD/PELVIS Edited Res ult - Final * US ABDOMEN LIMITED RIGHT UPPER QUADRANT (10/01/2024 1:58 PM EDT) Anatomical Region Laterality Modality Abdomen Ultrasound 10/01/2024 2:43 PM EDT Impressions 10/01/2024 2:56 PM EDT No acute findings in the right upper quadrant. ATTESTATION: Trang Powell as teaching physician, have reviewed the images for this case and if necessary edited the report originally created by Gianluca Bill. Narrative 10/01/2024 2:56 PM EDT US ABDOMEN LIMITED RIGHT UPPER QUADRANT Referring clinician's provided indication for this examination in [facility]: Abnormal LFTs TECHNIQUE: US Abdominal limited right upper quadrant. COMPARISON: CT ABDOMEN/PELVIS WITH CONTRAST 14:03:19.000 FINDINGS: Liver: No focal lesions seen. Main Portal Vein: Patent with normal direction of flow. Gallbladder: No gallstones or gallbladder wall thickening. No pericholecystic fluid. Jackson's Sign: Negative. Biliary: No intrahepatic or extrahepatic biliary ductal dilatation. The common bile duct measures 2 mm. Right Kidney: No hydronephrosis. Procedure Note Juani Kaplan MD - 10/01/2024 US ABDOMEN LIMITED RIGHT UPPER QUADRANT Referring clinician's provided indication for this examination in [facility]:Abnormal LFTs TECHNIQUE: US Abdominal limited right upper quadrant. COMPARISON: CT ABDOMEN/PELVIS WITH CONTRAST 14:03:19.000 FINDINGS: Liver: No focal lesions seen. Main Portal Vein: Patent with normal direction of flow. Gallbladder: No gallstones or gallbladder wall thickening. Nopericholecystic fluid. Jackson's Sign: Negative. Biliary: No intrahepatic or extrahepatic biliary ductal dilatation. The common bile duct measures 2 mm. Right Kidney: No hydronephrosis. IMPRESSION: No acute findings in the right upper quadrant. ATTESTATION: ITrang as teaching physician, havereviewed the images for this case and if necessary edited the reportoriginally created by Gianluca Bill. us Sylvia Perez PA-C IMG US ABDOMEN Final Result * (ABNORMAL) Urinalysis w/reflex Urine Culture (10/01/2024 12:41 PM EDT) COLOR Yellow Yellow [facility] CLARITY Clear [facility] GLUCOSE Negative Negative [facility] BILI 2+(A) Negative [facility] KETONES Negative Negative [facility] SPECIFIC GRAVITY <1.005 1.005 - 1.030 [facility] BLOOD Negative Negative [facility] PH 5.5 5.0 - 8.0 [facility] Protein-UA Negative Negative [facility] NITRITE Negative Negative [facility] Leukocyte esterase, ur Negative Negative [facility] Urine (Urine) 10/01/2024 12: 41 PM EDT 10/01/2024 1:01 PM EDT us Lev Kelsey MD URINE ORDERABLES Final Resu lt [address] [address] * (ABNORMAL) LFTs (hepatic panel) (10/01/2024 12:08 PM EDT) ALKALINE PHOSPHATASE 273(H) 39 - 117 U/L [facility] TOTAL BILIRUBIN 12.0(H) 0.0 - 1.2 mg/dL [facility] DIRECT BILIRUBIN 9.0(H) 0.0 - 0.2 mg/dL [facility] Bilirubin (Indirect) 3.0(H) 0 - 1.5 mg/dL [facility] AST 314(H) 0 - 37 U/L [facility] ALT 292(H) 0 - 40 U/L [facility] TOTAL PROTEIN 6.5 6.5 - 8.0 g/dL [facility] ALBUMIN 3.7(L) 3.9 - 4.8 g/dL [facility] GLOBULIN 2.8 1 - 4.8 g/dL [facility] A/G Ratio 1.32 1.00 - 4.80 RATIO [facility] Blood 10/01/2024 12:0 8 PM EDT 10/01/2024 12:20 PM EDT us Lev Kelsey MD LAB BLOOD ORDERABLES Final Result [address] [address] * (ABNORMAL) CBC and differential (10/01/2024 12:08 PM EDT) WBC 7.72 4.00 - 11.00 K/uL [facility] RBC 3.65(L) 4.00 - 5.20 M/uL [facility] HGB 12.3 12.0 - 16.0 g/dL [facility] HCT 36.5 36.0 - 46.0 % [facility] PLT 335 150 - 450 K/uL [facility] MCV 100.0 80.0 - 100.0 fL [facility] MCH 33.7(H) 27.0 - 31.0 pg [facility] MCHC 33.7 32.0 - 36.0 g/dL [facility] RDW 16.5(H) 11.5 - 14.5 % [facility] MPV 9.9 8.4 - 12.0 fL [facility] NRBC 0.00 0.00 /100 WBCs [facility] ABSOLUTE NRBC 0.00 0.00 K/uL [facility] DIFF METHOD Auto [facility] NEUTS 78.9(H) 48.0 - 76.0 % [facility] LYMPHS 16.3(L) 18.0 - 41.0 % [facility] MONOS 3.6(L) 4.0 - 11.0 % [facility] EOS 0.3 0.0 - 5.0 % [facility] BASOS 0.5 0.0 - 1.5 % [facility] Granulocytes, immature (%) 0.4 0.0 - 0.9 % [facility] ABSOLUTE NEUTS 6.09 1.92 - 7.60 K/uL [facility] ABSOLUTE LYMPHS 1.26 0.72 - 4.10 K/uL [facility] ABSOLUTE MONOS 0.28 0.16 - 1.10 K/uL [facility] ABSOLUTE EOS 0.02 0.00 - 0.50 K/uL [facility] ABSOLUTE BASOS 0.04 0.00 - 0.15 K/uL [facility] Granulocytes, immature 0.03 0.00 - 0.09 K/uL [facility] Blood 10/01/2024 12:0 8 PM EDT 10/01/2024 12:20 PM EDT us Lev Kelsey MD LAB BLOOD ORDERABLES Final Result Performing Organization Address City/[facility]/ZIP Co de Phone Number [address] [address] * Lipase (10/01/2024 12:08 PM EDT) LIPASE 39 16 - 63 U/L [facility] Blood 10/01/2024 12:0 8 PM EDT 10/01/2024 12:20 PM EDT us Lev Kelsey MD LAB BLOOD ORDERABLES Final Result Performing Organization Address [facility] de Phone Number [address] [address] * (ABNORMAL) Basic metabolic panel (10/01/2024 12:08 PM EDT) SODIUM 137 133 - 146 mmol/L [facility] CHLORIDE 101 96 - 108 mmol/L [facility] POTASSIUM 3.8 3.3 - 5.1 mmol/L [facility] CO2 22 21 - 35 mmol/L [facility] BUN 10 6 - 19 mg/dL [facility] CREATININE 0.30(L) 0.5 - 1.5 mg/dL [facility] GLUCOSE 122(H) 70 - 99 mg/dL [facility] CALCIUM 9.8 8.4 - 10.3 mg/dL [facility] EGFR 113 >59 mL/min/1.7 3m2 [facility] Comment:Estimated glomerular filtration rate calculated using the CKD-EPI refit equation. ANION GAP 18 10 - 20 mmol/L [facility] Blood 10/01/2024 12:0 8 PM EDT 10/01/2024 12:20 PM EDT us Lev Kelsey MD LAB BLOOD ORDERABLES Final Result Performing Organization Address City/[facility]/ZIP Co de Phone Number [address] [address] * BD DXA AXIAL (SPINE) WITH HIP (03/18/2024 10:00 AM EST) Anatomical Region Laterality Modality Bone Density Bone Density 03/18/2024 9:55 AM EST Impressions 03/18/2024 10:27 AM EST Interpretation: Osteopenia. Narrative 03/18/2024 10:27 AM EST Referred By: RENATA GONZALES Indications: Postmenopausal Scanner: [employer] A with serial# of [id number] located at [facility] Bone Density Scan (DXA) 03/18/24 Details of prior DXA scans are available by clicking View Image BMD T- Z- Skeletal Site gm/cm2 score score BMD Change Since Prior Scan ------ ----- ----- PA Spine (L1 L3) 1.246 2.10 4.30 N/A Total Hip (Left) 0.798 -1.20 0.40 N/A Femoral Neck (Left) 0.609 -2.20 -0.20 N/A Total Hip (Right) 0.802 -1.10 0.50 N/A Femoral Neck (Right) 0.620 -2.10 -0.10 N/A ------ ----- ----- * Denotes significant change when >= 0.022 g/cm2 for the spine, 0.027 g/cm2 for the total hip, 0.029 g/cm2 for the femoral neck. Interpretation: Osteopenia. Technical Quality: The PA Spine scan was of marginal quality because of scoliosis (which can decrease or increase BMD) and sclerosis or fracture (which increase BMD). Because only two vertebrae are measurable, interpret PA spine results with caution; serial changes may be more variable than usual. FRAX: A FRAX(r) score was not calculated because the patient indicated use of osteoporosis medication within the past 12 months. Additional Information: -World Health Organization criteria classify adults based on lowest T-score at PA spine, hip or forearm: Normal (T-score >= -1.0), Osteopenia (T-score between -1 and -2.5), or Osteoporosis (T-score <= -2.5). At [facility], T-scores are compared to peak bone density of a young white gender matched reference population. - For premenopausal women and men under the age of 50, Z-scores (comparison to age, gender, and ethnicity matched reference population) are used: Above expected range for age (Z-score >= 2.0), Within expected range of age (Z-score 1.9 to -1.9), or Below expected range for age (Z-score <= -2.0). - The Bone Health and Osteoporosis Foundation recommends that treatment be considered in men aged more than 50 years and in postmenopausal women with ANY of the following: Prior hip or vertebral fractures; T-score of <= -2.5 at the PA spine or hip; or 10 year fracture probability by FRAX of >= 3% for the hip or >= 20% for major osteoporotic fracture. - The FRAX algorithm (https://www.humble.ac.uk/FRAX/tool.aspx) is designed to predict 10-year fracture risk in treatment-naive adults between the ages of 40 and 90. It is not intended to be used in those receiving pharmacologic osteoporosis treatment. - Including race/ethnicity in the generation of T- or Z-scores or in the FRAX calculation is complicated, and currently undergoing active review to ensure that we can give patients the best information on their risk of fracture. -Some prior studies may not be compatible with our comparison software. -Click on View Full Report to see subsequent pages with images and prior bone density results. Reviewed By: Temo Pérez MD on 03/18/2024 10:27:18 Procedure Note Temo Pérez MD - 03/18/2024 Referred By: RENATA GONZALES Indications: Postmenopausal Scanner: [employer] A with serial# of [id number] located at [facility] Bone Density Scan (DXA) 03/18/24 Details of prior DXA scans are available by clicking View Image BMD T- Z- Skeletal Site gm/cm2 score score BMD Change Since Prior Scan ------ ----- PA Spine (L1 L3) 1.246 2.10 4.30 N/A Total Hip (Left) 0.798 -1.20 0.40 N/A Femoral Neck (Left) 0.609 -2.20 -0.20 N/A Total Hip (Right) 0.802 -1.10 0.50 N/A Femoral Neck (Right) 0.620 -2.10 -0.10 N/A ------ ----- * Denotes significant change when >= 0.022 g/cm2 for the spine, 0.027g/cm2 for the total hip, 0.029 g/cm2 for the femoral neck. Interpretation: Osteopenia. Technical Quality: The PA Spine scan was of marginal quality because of scoliosis (which can decrease or increase BMD) and sclerosis or fracture (which increase BMD). Because only two vertebrae are measurable,interpret PA spine results with caution; serial changes may be more variable than usual. FRAX: A FRAX(r) score was not calculated because the patient indicated use of osteoporosis medication within the past 12 months. Additional Information: -World Health Organization criteria classify adults based on lowestT-score at PA spine, hip or forearm: Normal (T-score >= -1.0), Osteopenia (T-score between -1 and -2.5), or Osteoporosis (T-score <= -2.5). At [facility], T-scores are compared to peak bone density of a young white gender matched reference population. - For premenopausal women and men under the age of 50, Z-scores(comparison to age, gender, and ethnicity matched reference population) are used:Above expected range for age (Z-score >= 2.0), Within expected range of age (Z-score 1.9 to -1.9), or Below expected range for age (Z-score <= -2.0). - The Bone Health and Osteoporosis Foundation recommends that treatment be considered in men aged more than 50 years and in postmenopausal women with ANY of the following: Prior hip or vertebral fractures; T-score of <= -2.5 at the PA spine or hip; or 10 year fracture probability by FRAX of >= 3%for the hip or >= 20% for major osteoporotic fracture. - The FRAX algorithm (https://www.humble.ac.uk/FRAX/tool.aspx) is designed to predict 10-year fracture risk in treatment-naive adultsbetween the ages of 40 and 90. It is not intended to be used in those receiving pharmacologic osteoporosis treatment. - Including race/ethnicity in the generation of T- or Z-scores or in the FRAX calculation is complicated, and currently undergoing active review to ensure that we can give patients the best information on their risk of fracture. -Some prior studies may not be compatible with our comparison software. -Click on View Full Report to see subsequent pages with images and prior bone density results. Reviewed By: Temo Pérez MD on 03/18/2024 10:27:18 IMPRESSION: Interpretation: Osteopenia. Renata Gonzales NP IM BD BONE DENSITY DEXA Final Result from Last 3 Months or Most Recently Relevant to Health Maintenance Insurance O MEDICARE REPLACEMENT MEDICARE REPLACEMENT MEDICARE REPLACEMENT MEDICARE REPLACEMENT MEDICARE REPLACEMENT MEDICARE REPLACEMENT MEDICARE [place] [address] [place] [address] MEDICARE REPLACEMENT Care Teams Systems Librarian Relationship Specialty Start Date End Date Renata Gonzales NP [address] [place] [phone] [email or web address] PCP - General Family Medicine 03/11/20 Additional Source Comments The information contained in this document represents components of the legal health record. It is not the complete legal health record.[facility]
--- OUTSIDE RECORDS SUMMARY | 2024-11-12 12:24 | XMS_ITS | Encounter Summary ---
Author Organization [facility] Address [address] [facility] [address] [place] [phone] Phone Care Team Providers Care Blueprint Developer Name Role Phone Renata Gil NP Primary Care Provid er Encounter Details Date Type Department Care Team (Late st Contact Info) Description 10/02/2024 Procedure [facility], [address] [address] Social History Tobacco Use Types Packs/Day Years Used Date Smoking Tobacco: Never Smokeless Tobacco: Never Alcohol Use Standard Drinks/Week Comments Not Currently [...] as food, clothing, or medical care? No 10/01/2024 In the past 12 months have y ou been in a relationship with a person who hurts, threatens, or tries to control you? No 10/01/2024 Are you denied basic needs s uch as food, clothing, or medical care? No 10/01/2024 In the past 12 months have y ou been in a relationship with a person who hurts, threatens, or tries to control you? No 10/01/2024 Comments Unknown Sex and Gender Information Value Date Recorded Sex Assigned at Not on file Legal Sex Female 9:59 PM EDT Gender Identity Not on file Sexual Orientation Not on file documented as of this encounter Last Filed Vital Signs Vital Sign Reading Time Taken Comments Blood Pressure - - Pulse - - Temperature - - Respiratory Rate - - Oxygen Saturation - - Inhaled Oxygen Concentration - - Weight 59.9 kg (132 lb) 10/03/2024 8:25 AM EDT Height 162.6 cm (5' 4 ) 10/03/2024 8:25 AM EDT Body Mass Index 22.66 10/03/2024 8:25 AM EDT documented in this encounter Plan of Treatment Not on file documented as of this encounter Visit Diagnoses Not on filedocumented in this encounter Care Teams Blueprint Developer Relationship Specialty Start Date End Date Renata Gil NP [address] [place] [phone] [email or web address] PCP - General Family Medicine 03/11/20 documented as of this encounter Additional Source Comments The information contained in this document represents components of the legal health record. It is not the complete legal health record.[facility]
--- OUTSIDE RECORDS SUMMARY | 2024-11-12 12:24 | XMS_ITS | Encounter Summary ---
Author Organization [facility] Address [address] [facility] [address] [place] [phone] Phone Care Team Providers Care Cooler Supervisor Name Role Phone Corky Gonzales NP Primary Care Provid er Encounter Details Date Type Department Care Team (Late st Contact Info) Description 06/13/2023 Transcribe Orders Virtual Department [address] [place] [address] Corky Gonzales, NINA [address] [place] [phone] [email or web address] Asymptomatic menopausal state (Primary Dx) Social History Tobacco Use Types Packs/Day Years [...] on file documented as of this encounter Results * BD DXA AXIAL (SPINE) WITH HIP (03/18/2024 10:00 AM EST) Anatomical Region Laterality Modality Bone Density Bone Density 03/18/2024 9:55 AM EST Impressions 03/18/2024 10:27 AM EST Interpretation: Osteopenia. Narrative 03/18/2024 10:27 AM EST Referred By: CORKY GONZALES Indications: Postmenopausal Scanner: [employer] with serial# of [id number] located at [facility] Bone Density Scan (DXA) 03/18/24 Details [...] -2.5), or Osteoporosis (T-score <= -2.5). At [facility], T-scores are compared to peak bone density [...] Temo Pérez MD - 03/18/2024 Referred By: CORKY GONZALES Indications: Postmenopausal Scanner: [employer] with serial# of [id number] located at [facility] Bone Density Scan (DXA) 03/18/24 Details of [...] -2.5), or Osteoporosis (T-score <= -2.5). At [facility], T-scores are compared to peak bone density [...] MD on 03/18/2024 10:27:18 IMPRESSION: Interpretation: Osteopenia. Corky Gonzales NP IMG BD BONE DENSITY DEXA Final Result documented in this encounter Visit Diagnoses Diagnosis Asymptomatic menopausal state- Primary Asymptomatic menopausal state documented in this encounter Care Teams Cooler Supervisor Relationship Specialty Start Date End Date Corky Gonzales NP [address] [place] [phone] [email or web address] PCP - General Family Medicine 03/11/20 documented as of this encounter Additional Source Comments The information contained in this document represents components of the legal health record. It is not the complete legal health record.[facility]
--- OUTSIDE RECORDS SUMMARY | 2024-11-12 12:24 | XMS_ITS | Encounter Summary ---
Author Organization [facility] Address [address] [facility] [address] [place] [phone] Phone Care Team Providers Care Technical Coordinator Name Role Phone Renata Gil MOVERS Primary Care Provid er Reason for Referral * MRI/CAT Scan - Closed Specialty Diagnoses / Procedures Referred By Contac t Referred To Contact Radiology Diagnoses Low back pain, unspecified back pain laterality, unspecified chronicity, unspecified whether sciatica present Procedures MRI Lumbar Spine CHG MRI, LUMBAR SPINE Brock Ann MD Phone: tel: fax: Referral ID Status Reason Start Date Expiration Date Visits Re quested Visits Authorized [id number] Closed 08/26/2020 12/26/2020 1 1 Encounter Details Date Type Department Care Team (Latest Contact Info) Description 09/09/2020 Transcribe Orders Virtual Department [address] [place] [address] Brock Ann MD [address] [place] [id number] Low back pain, unspecified back pain laterality, unspecified chronicity, unspecified whether sciatica present (Primary Dx) Social History Tobacco Use Types [...] documented as of this encounter Results * MRI LUMBAR SPINE (BONE) WITHOUT CONTRAST (09/23/2020 4:07 PM EDT) Anatomical Region Laterality Modality L-spine Magnetic Resonan ce 09/23/2020 4:12 PM EDT Impressions 09/23/2020 4:39 PM EDT 1.No acute fractures. 2.Leftward curvature of the lumbar spine, causing significant degenerative changes at all lumbar spinal levels. 3.Broad-based disc bulges at every level. Left worse than right neuroforaminal narrowing, described in detail above. No spinal canal stenosis at any level. Narrative 09/23/2020 4:39 PM EDT MRI LUMBAR SPINE (BONE) WITHOUT CONTRAST TECHNIQUE: Multi-sequence, multi-planar MRI of the lumbar spine was performed WITHOUT intravenous contrast. COMPARISON: None available. FINDINGS: Alignment and Vertebrae: Leftward curvature of the lumbar spine centered at L3- L4. No compression fracture. Marrow: No bone marrow replacing lesion identified. Discs and Endplates: Multilevel intervertebral disc height loss and disc desiccation, with adjacent endplate changes, perhaps worst at L2-L3. Conus: Terminates at the L1-L2 level. No signal abnormality. Other Findings: None. Findings by level: L1-L2: Broad-based disc bulge, slightly asymmetric towards the left, and bilateral facet hypertrophy; causes mass effect on the spinal canal without overt spinal canal stenosis. Moderate to severe left-sided and moderate right-sided neuroforaminal narrowing. L2-L3: Broad-based disc bulge, asymmetric towards the left, and bilateral facet hypertrophy. Moderate to severe left-sided and mild right-sided neuroforaminal narrowing. No spinal canal stenosis. L3-L4: Broad-based disc bulge and bilateral facet hypertrophy; causes mass effect on the spinal canal without overt spinal canal stenosis. Mild left-sided and moderate right-sided neuroforaminal narrowing. L4-L5: Broad-based disc bulge and bilateral facet hypertrophy, causing e lateral recess and descending nerve root impingement bilaterally. Mass effect on the spinal canal without spinal canal stenosis. Moderate to severe left-sided neuroforaminal narrowing. L5-S1: Normal. No spinal or foraminal stenosis. Procedure Note Soren Carr MD - 09/23/2020 MRI LUMBAR SPINE (BONE) WITHOUT CONTRAST TECHNIQUE: Multi-sequence, multi-planar MRI of the lumbar spine wasperformed WITHOUT intravenous contrast. COMPARISON: None available. FINDINGS: Alignment and Vertebrae: Leftward curvature of the lumbar spine centeredat L3- L4. No compression fracture. Marrow: No bone marrow replacing lesion identified. Discs and Endplates: Multilevel intervertebral disc height loss and discdesiccation, with adjacent endplate changes, perhaps worst at L2-L3. Conus: Terminates at the L1-L2 level. No signal abnormality. Other Findings: None. Findings by level: L1-L2: Broad-based disc bulge, slightly asymmetric towards the left, andbilateral facet hypertrophy; causes mass effect on the spinal canalwithout overt spinal canal stenosis. Moderate to severe left-sided andmoderate right-sided neuroforaminal narrowing. L2-L3: Broad-based disc bulge, asymmetric towards the left, and bilateralfacet hypertrophy. Moderate to severe left-sided and mild right-sidedneuroforaminal narrowing. No spinal canal stenosis. L3-L4: Broad-based disc bulge and bilateral facet hypertrophy; causes masseffect on the spinal canal without overt spinal canal stenosis. Mildleft-sided and moderate right-sided neuroforaminal narrowing. L4-L5: Broad-based disc bulge and bilateral facet hypertrophy, causing elateral recess and descending nerve root impingement bilaterally. Masseffect on the spinal canal without spinal canal stenosis. Moderate tosevere left-sided neuroforaminal narrowing. L5-S1: Normal. No spinal or foraminal stenosis. IMPRESSION: 1.No acute fractures. 2.Leftward curvature of the lumbar spine, causing significant degenerativechanges at all lumbar spinal levels. 3.Broad-based disc bulges at every level. Left worse than rightneuroforaminal narrowing, described in detail above. No spinal canalstenosis at any level. us Brock Ann MD IMG MR XSPECIALTY Final Result documented in this encounter Visit Diagnoses Diagnosis Low back pain, unspecified back pain laterality, unspecified chronicity, unspecified whether sciatica present- Primary Low back pain, unspecified back pain laterality, unspecified chronicity, unspecified whether sciatica present documented in this encounter Care Teams Technical Coordinator Relationship Specialty Start Date End Date Renata Gli NP [address] [place] [id number] [email or web address] PCP - General Family Medicine 03/11/20 documented as of this encounter Additional Source Comments The information contained in this document represents components of the legal health record. It is not the complete legal health record.[facility]
--- OUTSIDE RECORDS SUMMARY | 2024-11-12 12:24 | XMS_ITS | Encounter Summary ---
Author Organization [facility] Address [address] [facility] [address] [place] [phone] Phone Care Team Providers Care Service Superintendent Name Role Phone Renata Gil NP Primary Care Provid er Encounter Details Date Type Department Care Team (Late st Contact Info) Description 10/01/2024 Procedure [facility], Ct Scan - [address] [address] Social History Tobacco Use Types Packs/Day Years [...] on file documented as of this encounter Functional Status * Calculated C-SSRS Risk Score (Lifetime/Recent) Answer Date of Assessment Author No Risk Indicated 10/01/2024 11:22 AM Arielle Coles RN * [place] Suicide Severity Rating Scale (Screener/Recent Self-Report) Question Answer Date of Assessment Author 1. Wish to be (Past 1 Month) No 10/01/2024 11:22 AM Arielle Coles RN 2. Non-Specific Active Suici jasvir Thoughts (Past 1 Month) No 10/01/2024 11:22 AM Gabby Coles RN 6. Suicidal Behavior (Lifetime) No 11:22 AM Arielle Coles RN documented as of this encounter Plan of Treatment Not on file documented as of this encounter Visit Diagnoses Not on filedocumented in this encounter Care Teams Service Superintendent Relationship Specialty Start Date End Date Renata Gil NP [address] [place] [phone] [email or web address] PCP - General Family Medicine 03/11/20 documented as of this encounter Additional Source Comments The information contained in this document represents components of the legal health record. It is not the complete legal health record.[facility]
--- OUTSIDE RECORDS SUMMARY | 2024-11-12 12:24 | XMS_ITS | Encounter Summary ---
Author Organization [facility] Address [address] [facility] [address] [place] [phone] Phone Care Team Providers Care Reverse Unit Operator Fisherman Name Role Phone Renata Gil [employer]IC[employer] PROFESSOR Primary Care Provid er Encounter Details Date Type Department Care Team (Late st Contact Info) Description 10/30/2024 Procedure Pass [facility] Admitting Dept Virtual Department [address] [place] [address] Social History Tobacco Use Types Packs/Day Years Used Date Smoking Tobacco: Former Cigarettes Q uit: 1985 Smokeless Tobacco: Never Alcohol Use Standard Drinks/Week [...] on filedocumented in this encounter Care Teams Reverse Unit Operator Fisherman Relationship Specialty Start Date End Date Renata Gil NP [address] [place] [phone] [email or web address] PCP - General Family Medicine 03/11/20 documented as of this encounter Additional Source Comments The information contained in this document represents components of the legal health record. It is not the complete legal health record.[facility]
[2024-11-16 15:08] LABS: Vitamin D 25-OH, D2 <4 ng/mL; Vitamin D 25-OH, D3 66 ng/mL; Vitamin D 25-OH, Total 66 ng/mL (30-100)
== END 2024-11-12 10:13 | disposition home or self-care (01) ==
LOC: HO.LAB 10:12
PROVIDERS: PCP Nurse Practitioner Family; Visit Provider Student in an Organized Health Care Education/Training Program
DX: M35.3 Polymyalgia rheumatica (principal); E55.9 Vitamin D deficiency, unspecified
CPT/HCPCS: 36415; 80053; 82306; 85025; 85652; 86140

== ENCOUNTER 2024-11-13 11:46 | Outpatient (AMB) | payer OTHER, SELFPAY ==
--- NOTE | 2024-11-13 11:47 | MHC.OFFVIS ---
Vital Signs 11/13/24 11:52 Height 5 ft 5 in Weight 127 lb 10.362 oz BMI 21.2 BP 124/78 Blood Pressure Location Lt brachial Position Sitting Pulse 88 Pulse Source Pulse Oximeter Pulse Oximetry (%) 99 Oxygen Delivery Method Room Air Intake Visit Reasons: follow up Intake Note: Patient presents for PMR follow up. Allergies acetaminophen (From Percocet) Allergy (Verified 11/13/24 11:52) Nausea and Vomiting bupropion (From Wellbutrin) Allergy (Verified 11/13/24 11:52) Abdominal Pain oxycodone (From Percocet) Allergy (Verified 11/13/24 11:52) Nausea and Vomiting Medication List - Last Reconciled 11/13/24 by Aleena Chavez MD acetaminophen ER 1,300 mg PO Q12H aripiprazole 5 mg PO DAILY atorvastatin 10 mg PO DAILY clonazepam 0.25 mg PO BID clonidine HCl 0.1 mg PO BEDTIME gabapentin 600 mg PO TID 90 days glycopyrrolate 0 mg PO hydroxyzine HCl 25 mg PO TID latanoprost 0.005% 0 drps ophthalmic (eye) lisinopril 10 mg PO DAILY ondansetron HCl 4 mg PO Q8H PRN prednisone 1 mg PO DAILY trazodone mg PO HPI Comments Details: Patient is a 73-year-old female with hyperlipidemia, osteoporosis, polyarticular osteoarthritis and polymyalgia rheumatica here today for follow up Interval History: Patient last seen 05/09/24 with me - Not on any rheum medications - Not on prednisone and doing well overall - She denies stiffness involving her shoulders and hips but is complaining of back pain with radiating to the left lower leg. Also intermittently gets hand, knee and shoulder pain but her current issue is the back - No signs or symptoms concerning GCA Since then - Patient had return of sx and was restarted on steroids Today - On Prednisone 10mg daily - Improved sx on the prednisone Rheumatologic History: PMR dx around [address] Ann On and off prednisone since then has never been on any DMARDs Lasts prednisolone course was completed in 11/2023. Had a flare that was treated with Prednisone 12/2023 and has been subsequently off Prednisone since 01/2024 Current Rheumatology Medication(s): Alendronate 70mg PO weekly Prednisone 10mg daily [facility] Medical History (Updated 11/14/24 @ 10:00 by Aleena Chavez MD) Osteopenia Bilateral foot pain Bilateral hand pain History of sleep disorder Hx of attention deficit disorder Hx of low back pain Hx of bipolar disorder History of anxiety Hx of essential hypertension Hx of hyperlipidemia Hx of idiopathic urticaria History of hyperthyroidism Hx of osteopenia Overweight with body mass index (BMI) of 29 to 29.9 in adult Hx of hyperkalemia History of macrocytosis 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 History of polymyalgia rheumatica Surgical History History of open reduction and internal fixation (ORIF) procedure Hx of cervical spine surgery Social History Household Members: None Alcohol intake: current Alcohol intake frequency: holidays/special occasions only Patient Tobacco Use Status: Former Tobacco user Current occupational status: employed 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 [employer] Gender identity: Female Review of Systems Const Details: Review of Systems Constitutional: Denies fever, chills, weight loss ENT: Denies vision changes, eye pain or eye redness, dental caries, dry mouth GI: Denies nausea, vomiting, diarrhea, abdominal pain, change in BM Pulm: Denies SOB, DOHERTY, hemoptysis, wheezing Cards: Denies chest pain, palpitations Skin: Denies Raynaud's, rash, nail changes, photosensitivity, DRESSING ROOM PORTER: Denies headaches, weakness, paresthesias, recurrent falls MSK: as per HPI All other systems reviewed and are unremarkable except noted above Physical Exam Exam Exam: Vital signs reviewed Physical Examination CONSTITUITIONAL Patient alert and cooperative. Well appearing and in no apparent painful distress MSK Hands Right Hand: Able to make a fist. No swelling or tenderness to palpation of the MCPs, PIPs or DIPs. No deformities noted. Left Hand: Able to make a fist. No swelling or tenderness to palpation of the MCPs, PIPs or DIPs. No deformities noted. Wrists Right Wrist: Full ROM to flexion and extension. No swelling or TTP Left Wrist: Full ROM to flexion and extension. No swelling or TTP Elbows Right Elbow: Full ROM. No swelling or TTP. No TTP of the medial epicondyle. No TTP of the lateral epicondyle Left Elbow: Full ROM. No swelling or TTP. No TTP of the medial epicondyle. No TTP of the lateral epicondyle Shoulders Right shoulder: Full ROM. No swelling noted. No TTP of the AC joint. No TTP of the subacromial bursa. No TTP of the posterior shoulder Left shoulder: Full ROM. No swelling noted. No TTP of the AC joint. No TTP of the subacromial bursa. No TTP of the posterior shoulder Hips Right hip: Good ROM. No pain elicited with hip flexion/internal rotation/external rotation Left hip: Good ROM. No pain elicited with hip flexion/internal rotation/external rotation Hip bursa: No tenderness to palpation bilaterally Knees Right knee: Full ROM. No swelling noted. No TTP of the knee joint line. No TTP of pes anserine bursa Left knee: Full ROM. No swelling noted. No TTP of the knee joint line. No TTP of pes anserine bursa. Ankles Right ankle: Good ankle dorsiflexion and plantar flexion. No swelling. No TTP of the ankle joint Left ankle: Good ankle dorsiflexion and plantar flexion. No swelling. No TTP of the ankle joint Feet Right foot: Negative squeeze test Left foot: Negative squeeze test Tender points? No tenderness to palpation of the bilateral trapezius, supraspinatus, anterior costochondral junctions, bilateral suboccipital muscle insertions SKIN No rashes Vital Signs: Last Vital Signs Pulse 88 11/13/24 11:52 BP 124/78 11/13/24 11:52 Pulse Ox 99 11/13/24 11:52 Oxygen Delivery Method Room Air 11/13/24 11:52 BMI result Body Mass Index 21.2 Results Reviewed Results Reviewed: Laboratory Tests 06/30/24 11/12/24 12:27 10:29 WBC 9.3 RBC 3.57 L Hgb 12.7 Hct 37.5 Plt Count 286 ESR 23 H 10 Sodium 140 Potassium 4.6 Chloride 105 Carbon Dioxide 24 BUN 12 Creatinine 0.68 AST 26 103 H ALT 12 110 H C-Reactive Protein 1.17 H 0.12 25-OH Vitamin D Total Pending Laboratory Tests 02/22/23 10/31/23 10:45 10:20 Rheumatoid Factor < 13.0 Cycl Citrul Peptide IgG <16 RACHAEL Screen NEGATIVE HLA-B27 Negative Laboratory Tests 06/30/24 12:27 Hepatitis A IgM Ab Nonreactive Hep Bs Antigen Negative Hep Bs Antibody NONREACTIVE Hep B Core Total Ab Nonreactive Hepatitis C Ab (EIA) Nonreactive TB Test (T-Spot) Com Negative Assessment & Plan Assessment & Plan (1) Polymyalgia rheumatica: Comment: dx around [address] Ann On and off prednisone since then has never been on any DMARDs Lasts prednisolone course was completed in 11/2023. Had a flare that was treated with Prednisone 12/2023 and has been subsequently off Prednisone since 01/2024 Code(s): M35.3 - Polymyalgia rheumatica Category: Medical Plan: #PMR Patient is a 73-year-old female with PMR on and off steroids since 2019. Has been off steroids for about a year but has had a relapse. Restarted steroids and currently starting a taper. We will need to discuss with the patient at the next visit about starting DMARDs since this is her 3rd relapse Plan - Decrease prednisone: 9 mg x 4 weeks, then 8 mg x 4 weeks, then 7 mg x 4 weeks, then 6 mg x 4 weeks, then 5 mg x 4 weeks, then 4 mg x 4 weeks, then 3 mg x 4 weeks, then 2 mg x 4 weeks, then 1 mg x 4 weeks - RTC 4 months - Labs before visit: CBC, CMP, ESR, CRP (2) Osteopenia: Comment: Alendronate ?duration - 11/2024 DEXA 03/2024: AP Spine 2.10, Left femur neck -2.2, Left femur total -1.2 Code(s): M85.80 - Other specified disorders of bone density and structure, unspecified site Category: Medical Qualifiers: Osteopenia location: unspecified Qualified Code(s): M85.80 - Other specified disorders of bone density and structure, unspecified site Plan: #Osteopenia Patient with osteopenia. Most recent bone density shows stable osteopenia. 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: Code(s): Z79.52 - longterm (current) use of systemic steroids Plan: #Long-term Use of Steroids Discussed with patient the risks and benefits of steroid for managing the rheumatic condition Benefits include: - Reduced pain, improved mobility, increased participation in activities, and decreased progression of disease Risks include: - GI upset, potential ultrasound worsening or formation (especially in patients > 65 years old), elevated blood pressure/worsening hypertension, elevated blood sugar/worsening diabetes control, worsening of bone density, elevated lipids/worsening triglycerides, cataract formation, weight gain Recommended using proton pump inhibitors (PPIs) for the duration of steroid use to reduce the risk of gastric ulcers and vitamin-D daily to reduce the risk of osteoporosis Labs checked: A1c, T spot, hepatitis-B and C serologies Pneumocystis jiroveci prophylaxis: Patient with risk factors including steroids greater than 50 mg for more than 30 days, age greater than 60 years, and lung involvement from underlying rheumatic disease requires prophylaxis and will be given so Plan I spent 30 minutes reviewing the record and labs, taking a history, examining the patient, discussing the treatment plan, ordering diagnostic work up and documenting in the medical record Medications: New prednisone Take 9 tablets for 4 weeks then 8 tablets for 4 weeks then 7 tablets for 4 weeks then 6 tablets for 4 weeks 1 mg PO DAILY 270 tabs 3RF M35.3 - Polymyalgia rheumatica Discontinued alendronate Discontinued Reason: Patient no longer taking 70 mg PO QWEEK 90 days 13 tabs 1RF Z87.39 - Personal history of other diseases of the musculoskeletal system and connective tissue prednisone Take 3 pills daily for 14 days then 2.5 pills daily for 14 days then 2 pills daily for 30 days Discontinued Reason: Doctor's Order 5 mg PO DIRECTED 60 tabs 0RF M35.3 - Polymyalgia rheumatica prednisone Discontinued Reason: Doctor's Order 10 mg PO DAILY 30 tabs 0RF Coding Level of Care Code Est Pt Level 4 (75890) Complex EM visit Add On G2211 Diagnoses Polymyalgia rheumatica M35.3 Osteopenia, unspecified location M85.80 Osteopenia location: unspecified 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
[2024-11-13 11:52] VITALS: BP 124/78; PULSE 88; O2SAT 99; BMI 21.2
--- OUTSIDE RECORDS SUMMARY | 2024-11-13 16:10 | XMS_ITS | Clinical Summary ---
Author Organization [facility] Address [address] [facility] [address] [place] [address] Phone Care Team Providers Care Hand Cigar Making Supervisor Name Role Phone Renata Gonzales NP Primary [...] Surgery [facility] Endoscopy Admitting Dept Virtual Department [address] [place] [address] Rocky Roque MD COLONOSCOPY 10/30/2024 12:03 PM EDT Anesthesia Event [facility] Endoscopy Admitting Dept Virtual Department [address] [place] [address] 24027 Laura Perez MD 10/30/2024 10:59 AM EDT - 10/30/2024 1:00 PM EDT Hospital Encounter [facility] Endoscopy Admitting Dept Virtual Department [address] [place] [address]22 Rocky Roque MD Discharge Disposition: Home or Self Care 10/30/2024 Procedure Pass [facility] Endoscopy Admitting Dept Virtual Department [address] [place] [address] 10/24/2024 10:15 AM EDT Pre-Admission Testing Pre Procedure Evaluation [address] [place] [address] Rocky Roque MD 10/08/2024 9:17 AM EDT - 10/08/2024 11:59 PM EDT Hospital Encounter [address] [address] Tiffanie Sorto NP Discharge Disposition: Home or Self Care 10/02/2024 Procedure Pass [address] [address] 10/02/2024 Transcribe Orders Virtual Department [address] [place] [address] Tiffanie Sorto NP Disease of pancreas (Primary Dx) 10/01/2024 11:55 AM EDT - 10/01/2024 4:15 PM EDT Emergency [facility] Emergency [address] [place] [address] Discharge Disposition: Left Against Medical Advice 10/01/2024 Procedure Pass [facility], Ct Scan - [facility] [address] [place] [address] from Last 3 Months Social History Tobacco [...] this topic Medical Devices Implanted Type Area Concrete Spreader Device Identifier Shelf Expiration Date Model / Serial / Lot Screws And Pins-Ankle Procedures Procedure Name Priority Date/Time Associated Diagnosis Comments DE COLSC FLX W/RMVL OF TUMOR POLYP LESION SNARE TQ 10/30/2024 12:04 PM EDT Abnormal liver function Abnormal liver diagnostic imaging DE COLONOSCOPY W/BIOPSY SINGLE/MULTIPLE 10/30/2024 12:04 PM EDT Abnormal liver function Abnormal liver diagnostic imaging DE COLONOSCOPY FLX DX W/MECHELLE J SPEC WHEN [...] Roque MD - 10/30/2024 12:00 PM EDT [facility] Patient Name: Jaclyn Mcdaniels Attending MD:: ROCKY ROQUE MD, Procedure Date: 10/30/2024 12:00 PM Date of : 1950 Age: 73 Admit Type: Outpatient Gender: Female Room: [place] [address] Referring MD: Renata Gonzales Exam Type: Colonoscopy [...] 12:00 PM Procedure Code(s): --- Professional --- 35228, Colonoscopy, flexible; with removal of tumor(s), polyp(s), or other lesion(s) by snare technique --- Technical --- 05020, Colonoscopy, flexible; with removal of tumor(s), polyp(s), [...] or abscess without bleeding CPT copyright 2021 [employer]. All rights reserved. The codes documented in this report are preliminary and upon certified coder reviewmay be revised to meet current compliance requirements. Procedure Date: 10/30/2024 12:00:[address] [place] [address] Renata Gonzales NP GI PROCEDURE ORDERAB LES Final Result * Anatomic Pathology (10/30/2024 12:00 AM EDT) 10/30/2024 10/30/2024 1:1 5 PM EDT Narrative SEE NARRATIVE - 11/04/2024 9:21 AM EDT [address] [address] [facility]: Travis Toney MD Surgical Pathology Report FINAL [...] cassette labeled B1. Grossed by: GALDINO Mariee PA([facility]) [id number] 10/30/2024 Grossing Staff: [id number] Patient Name: JACLYN MCDANIELS : 1950 (Age: 73) Sex: F Institution: [facility] Location: [facility] Date of Operation: 10/30/2024 Date of Reported: 11/04/2024 09:21 Results To: Rocky Gonzales PANTS BUSHELER us Rocky Roque MD PATHOLOGY ORDERABLES Final Res ult SEE NARRATIVE * MRI CHOLANGIOPANCREATOGRAPHY (MRCP) WITH AND WITHOUT CONTRAST (10/08/2024 10:40 AM EDT) MGB IMG RECOMMENDATION COMMENT liver lesion [facility] Anatomical Region Laterality Modality Pancreas, Biliary Magnetic [...] clinician's provided indication for this examination in [facility]:Outside Radiology Order TECHNIQUE: Multiplanar MR imaging [...] CONTRAST (10/01/2024 2:06 PM EDT) MGB IMG TOMBSTONE SETTER COMMENT A 2.0 cm hypodense area in the pancreatic head/uncinate process could represent focal fat infiltration but underlying pancreatic lesion not excluded given reported jaundice. [facility] Anatomical Region Laterality Modality Abdomen, Pelvis Computed [...] initiated on 10/01/2024 4:20 PM, Message ID [id number]. ATTESTATION: I, Trang Chacon as teaching physician, [...] was initiated on 10/01/2024 4:20 PM,Message ID [id number]. ATTESTATION: Trang Powell as teaching physician, havereviewed [...] clinician's provided indication for this examination in [facility]: Abnormal LFTs TECHNIQUE: US Abdominal limited [...] clinician's provided indication for this examination in [facility]:Abnormal LFTs TECHNIQUE: US Abdominal limited right [...] (10/01/2024 12:41 PM EDT) COLOR Yellow Yellow [facility] CLARITY Clear [facility] GLUCOSE Negative Negative [facility] BILI 2+(A) Negative [facility] KETONES Negative Negative [facility] SPECIFIC GRAVITY <1.005 1.005 - 1.030 [facility] BLOOD Negative Negative [facility] PH 5.5 5.0 - 8.0 [facility] Protein-UA Negative Negative [facility] NITRITE Negative Negative [facility] Leukocyte esterase, ur Negative Negative [facility] Urine (Urine) 10/01/2024 12: 41 PM EDT 10/01/2024 1:01 PM EDT us Lev Kelsey MD URINE ORDERABLES Final Resu lt [address] [address] * (ABNORMAL) LFTs (hepatic panel) (10/01/2024 12:08 PM EDT) ALKALINE PHOSPHATASE 273(H) 39 - 117 U/L [facility] TOTAL BILIRUBIN 12.0(H) 0.0 - 1.2 mg/dL [facility] DIRECT BILIRUBIN 9.0(H) 0.0 - 0.2 mg/dL [facility] Bilirubin (Indirect) 3.0(H) 0 - 1.5 mg/dL [facility] AST 314(H) 0 - 37 U/L [facility] ALT 292(H) 0 - 40 U/L [facility] TOTAL PROTEIN 6.5 6.5 - 8.0 g/dL [facility] ALBUMIN 3.7(L) 3.9 - 4.8 g/dL [facility] GLOBULIN 2.8 1 - 4.8 g/dL [facility] A/G Ratio 1.32 1.00 - 4.80 RATIO [facility] Blood 10/01/2024 12:0 8 PM EDT 10/01/2024 12:20 PM EDT us Lev Kelsey MD LAB BLOOD ORDERABLES Final Result [address] [address] * (ABNORMAL) CBC and differential (10/01/2024 12:08 PM EDT) WBC 7.72 4.00 - 11.00 K/uL [facility] RBC 3.65(L) 4.00 - 5.20 M/uL [facility] HGB 12.3 12.0 - 16.0 g/dL [facility] HCT 36.5 36.0 - 46.0 % [facility] PLT 335 150 - 450 K/uL [facility] MCV 100.0 80.0 - 100.0 fL [facility] MCH 33.7(H) 27.0 - 31.0 pg [facility] MCHC 33.7 32.0 - 36.0 g/dL [facility] RDW 16.5(H) 11.5 - 14.5 % [facility] MPV 9.9 8.4 - 12.0 fL [facility] NRBC 0.00 0.00 /100 WBCs [facility] ABSOLUTE NRBC 0.00 0.00 K/uL [facility] DIFF METHOD Auto [facility] NEUTS 78.9(H) 48.0 - 76.0 % [facility] LYMPHS 16.3(L) 18.0 - 41.0 % [facility] MONOS 3.6(L) 4.0 - 11.0 % [facility] EOS 0.3 0.0 - 5.0 % [facility] BASOS 0.5 0.0 - 1.5 % [facility] Granulocytes, immature (%) 0.4 0.0 - 0.9 % [facility] ABSOLUTE NEUTS 6.09 1.92 - 7.60 K/uL [facility] ABSOLUTE LYMPHS 1.26 0.72 - 4.10 K/uL [facility] ABSOLUTE MONOS 0.28 0.16 - 1.10 K/uL [facility] ABSOLUTE EOS 0.02 0.00 - 0.50 K/uL [facility] ABSOLUTE BASOS 0.04 0.00 - 0.15 K/uL [facility] Granulocytes, immature 0.03 0.00 - 0.09 K/uL [facility] Blood 10/01/2024 12:0 8 PM EDT 10/01/2024 12:20 PM EDT us Lev Kelsey MD LAB BLOOD ORDERABLES Final Result Performing Organization Address City/[facility]/ZIP Co de Phone Number [address] [address] * Lipase (10/01/2024 12:08 PM EDT) LIPASE 39 16 - 63 U/L [facility] Blood 10/01/2024 12:0 8 PM EDT 10/01/2024 12:20 PM EDT us Lev Kelsey MD LAB BLOOD ORDERABLES Final Result Performing Organization Address [facility] de Phone Number [address] [address] * (ABNORMAL) Basic metabolic panel (10/01/2024 12:08 PM EDT) SODIUM 137 133 - 146 mmol/L [facility] CHLORIDE 101 96 - 108 mmol/L [facility] POTASSIUM 3.8 3.3 - 5.1 mmol/L [facility] CO2 22 21 - 35 mmol/L [facility] BUN 10 6 - 19 mg/dL [facility] CREATININE 0.30(L) 0.5 - 1.5 mg/dL [facility] GLUCOSE 122(H) 70 - 99 mg/dL [facility] CALCIUM 9.8 8.4 - 10.3 mg/dL [facility] EGFR 113 >59 mL/min/1.7 3m2 [facility] Comment:Estimated glomerular filtration rate calculated using the CKD-EPI refit equation. ANION GAP 18 10 - 20 mmol/L [facility] Blood 10/01/2024 12:0 8 PM EDT 10/01/2024 12:20 PM EDT us Lev Kelsey MD LAB BLOOD ORDERABLES Final Result Performing Organization Address City/[facility]/ZIP Co de Phone Number [address] [address] * BD DXA AXIAL (SPINE) WITH HIP (03/18/2024 10:00 AM EST) Anatomical Region Laterality Modality Bone Density Bone Density 03/18/2024 9:55 AM EST Impressions 03/18/2024 10:27 AM EST Interpretation: Osteopenia. Narrative 03/18/2024 10:27 AM EST Referred By: RENATA GONZALES Indications: Postmenopausal Scanner: [employer] A with serial# of [id number] located at [facility] Bone Density Scan (DXA) 03/18/24 Details of [...] -2.5), or Osteoporosis (T-score <= -2.5). At [facility], T-scores are compared to peak bone density [...] Referred By: RENATA GONZALES Indications: Postmenopausal Scanner: [employer] A with serial# of [id number] located at [facility] Bone Density Scan (DXA) 03/18/24 Details of [...] -2.5), or Osteoporosis (T-score <= -2.5). At [facility], T-scores are compared to peak bone density [...] REPLACEMENT MEDICARE REPLACEMENT MEDICARE REPLACEMENT MEDICARE REPLAC[place] [address] [address] [address] MEDICARE REPLACEMENT Care Teams Hand Cigar Making Supervisor Relationship Specialty Start Date End Date Renata Gonzales NP [address] [place] [address] [email or web address] PCP - General Family Medicine 03/11/20 Additional Source Comments The information contained in this document represents components of the legal health record. It is not the complete legal health record.[facility]
--- OUTSIDE RECORDS SUMMARY | 2024-11-13 16:10 | XMS_ITS | Encounter Summary ---
Author Organization [facility] Address [address] [facility] [address] [place] [address] Phone Care Team Providers Care Associate Professor Of Biostatistics Name Role Phone Renata Gil LAMINATING MACHINE OPERATOR HELPER Primary Care Provid er Encounter Details Date Type Department Care Team (Late st Contact Info) Description 10/30/2024 Procedure Pass [facility] Endoscopy Admitting Dept Virtual Department [address] [place] [address] Social History Tobacco Use Types Packs/Day Years [...] on filedocumented in this encounter Care Teams Associate Professor Of Biostatistics Relationship Specialty Start Date End Date Renata Gil NP [address] [place] [address] [email or web address] PCP - General Family Medicine 03/11/20 documented as of this encounter Additional Source Comments The information contained in this document represents components of the legal health record. It is not the complete legal health record.[facility]
--- OUTSIDE RECORDS SUMMARY | 2024-11-13 16:10 | XMS_ITS | Encounter Summary ---
Author Organization [facility] Address [address] [facility] [address] [place] [address] Phone Care Team Providers Care Rounder Hand Name Role Phone Corky Gonzales NP Primary Care Provid er Encounter Details Date Type Department Care Team (Late st Contact Info) Description 06/13/2023 Transcribe Orders Virtual Department [address] [place] [address] Corky Gonzales, NINA [address] [place] [phone] [email or web address] Asymptomatic menopausal state (Primary Dx) Social [...] Referred By: CORKY GONZALES Indications: Postmenopausal Scanner: [employer] A with serial# of [id number] located at [facility] Bone Density Scan (DXA) 03/18/24 Details [...] -2.5), or Osteoporosis (T-score <= -2.5). At [facility], T-scores are compared to peak bone [...] Referred By: CORKY GONZALES Indications: Postmenopausal Scanner: [employer] A with serial# of [id number] located at [facility] Bone Density Scan (DXA) 03/18/24 Details [...] -2.5), or Osteoporosis (T-score <= -2.5). At [facility], T-scores are compared to peak bone [...] state documented in this encounter Care Teams Rounder Hand Relationship Specialty Start Date End Date Corky Gonzales NP [address] [place] [phone] [email or web address] PCP - General Family Medicine 03/11/20 documented as of this encounter Additional Source Comments The information contained in this document represents components of the legal health record. It is not the complete legal health record.[facility]
--- OUTSIDE RECORDS SUMMARY | 2024-11-13 16:10 | XMS_ITS | Encounter Summary ---
Author Organization [facility] Address [address] [facility] [address] [place] [address] Phone Care Team Providers Care Supervisor Furnace Process Name Role Phone Renata Gil NP Primary Care Provid er Encounter Details Date Type Department Care Team (Late st Contact Info) Description 10/02/2024 Procedure Pass [facility], [address] [address] Social History Tobacco Use Types Packs/Day Years [...] on filedocumented in this encounter Care Teams Supervisor Furnace Process Relationship Specialty Start Date End Date Renata Gil NP [address] [place] [address] [email or web address] PCP - General Family Medicine 03/11/20 documented as of this encounter Additional Source Comments The information contained in this document represents components of the legal health record. It is not the complete legal health record.[facility]
--- OUTSIDE RECORDS SUMMARY | 2024-11-13 16:10 | XMS_ITS | Encounter Summary ---
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 It is not the complete legal health record.[facility]
--- OUTSIDE RECORDS SUMMARY | 2024-11-13 16:10 | XMS_ITS | Encounter Summary ---
Author Organization [facility] Address [address] [facility] [address] [place] [address] Phone Care Team Providers Care Psychiatric Secretary Name Role Phone Renata Gil NP Primary Care Provid er Encounter Details Date Type Department Care Team (Late st Contact Info) Description 10/01/2024 Procedure Pass [facility], Ct Scan - [address] [address] Social History Tobacco Use Types Packs/Day Years [...] 10/01/2024 11:22 AM Arielle Coles RN * [place] Suicide Severity Rating Scale (Screener/Recent Self-Report) Question [...] on filedocumented in this encounter Care Teams Psychiatric Secretary Relationship Specialty Start Date End Date Renata Gil NP [address] [place] [phone] [email or web address] PCP - General Family Medicine 03/11/20 documented as of this encounter Additional Source Comments The information contained in this document represents components of the legal health record. It is not the complete legal health record.[facility]
--- OUTSIDE RECORDS SUMMARY | 2024-11-13 16:10 | XMS_ITS | Encounter Summary ---
Author Organization [facility] Address [address] [place] [address] Phone Care Team Providers Care Catalyst Plant Supervisor Name Role Phone Renata Gil NP Primary Care Provid er Encounter Details Date Type Department Care Team (Late st Contact Info) Description 09/09/2020 Procedure Pass [facility], [address] [address] Social History Tobacco Use Types Packs/Day Years [...] on filedocumented in this encounter Care Teams Catalyst Plant Supervisor Relationship Specialty Start Date End Date Renata Gil NP [address] [place] [address] [email or web address] PCP - General Family Medicine 03/11/20 documented as of this encounter Additional Source Comments The information contained in this document represents components of the legal health record. It is not the complete legal health record.[facility]
--- OUTSIDE RECORDS SUMMARY | 2024-11-13 16:10 | XMS_ITS | Encounter Summary ---
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 Primary Care Provid er Reason for Referral [...] Expiration Date Visits Re quested Visits Authorized [id number] Closed 08/26/2020 12/26/2020 1 1 Encounter Details Date Type Department Care Team (Latest Contact Info) Description 09/09/2020 Transcribe Orders Virtual Department [address] [place] [address] Brock Ann MD [address] [place] [address] Low back pain, unspecified back pain laterality, [...] present documented in this encounter Care Teams Chalk Molding Machine Operator Relationship Specialty Start Date End Date Renata Gil NP [address] [place] [address] [email or web address] PCP - General Family Medicine 03/11/20 documented as of this encounter Additional Source Comments The information contained in this document represents components of the legal health record. It is not the complete legal health record.[facility]
== END 2024-11-13 12:20 | disposition home or self-care (01) ==
LOC: HO.RHES 11:47
PROVIDERS: PCP Nurse Practitioner Family; Visit Provider Student in an Organized Health Care Education/Training Program
DX: M35.3 Polymyalgia rheumatica (principal); M85.80 Other specified disorders of bone density and structure, unspecified site; Z79.52 Long term (current) use of systemic steroids
CPT/HCPCS: 99214; G2211

== ENCOUNTER → 2024-11-13 11:46 | Outpatient (BNVA) | payer OTHER, SELFPAY | PROVIDERS: PCP Nurse Practitioner Family; Visit Provider Student in an Organized Health Care Education/Training Program | DX: M35.3 Polymyalgia rheumatica (principal); M05.80 Other rheumatoid arthritis with rheumatoid factor of unspecified site; Z79.52 Long term (current) use of systemic steroids | CPT/HCPCS: 99212 ==